=== PATIENT | male | born 1950 | race Caucasian/White ===

== ENCOUNTER 2019-08-07 16:16 | Inpatient (IN) | payer MEDICARE, OTHER, SELFPAY ==
[2019-08-07] VITALS (9 sets, daily range): BP systolic 136–158; BP diastolic 56–80; PULSE 58–73; RESP 13–16; TEMP 36.6–37.1; O2SAT 97–100; BMI 36.5
--- NOTE | ~2019-08-07 | XR_ITS ---
XR toe 1st RT min 2V DATE: 08/10/2019 11:44 INDICATION: Right toe swelling and pain. No known injury. TECHNIQUE: 4 views COMPARISON: None FINDINGS: No fracture, dislocation, periosteal reaction or bone destruction, radiopaque foreign body or subcutaneous emphysema is evident. IMPRESSION: No significant bony abnormality Reviewed, dictated and finalized at location A.
--- NOTE | ~2019-08-07 | XR_ITS ---
EXAMINATION: XR chest 2V EXAM DATE: 08/07/2019 17:29 INDICATION: Epigastric pain and vomiting. Symptoms for days. TECHNIQUE: Frontal and lateral projections of the chest obtained and reviewed. Comparison is made to prior examination from 10/15/2012. FINDINGS: The lungs are clear. There are no pleural effusions. The cardiomediastinal silhouette is within normal limits. There is no pneumothorax suspected. Mild thoracic scoliosis. Patient has diff use idiopathic skeletal hyperostosis (DISH). IMPRESSION: No acute cardiopulmonary findings. Reviewed, dictated and finalized at location A.
--- NOTE | ~2019-08-07 | US_ITS ---
US right upper quadrant DATE: 08/08/2019 07:48 INDICATION: Abnormal liver function tests, abnormal lipase. Possible acute cholecystitis. TECHNIQUE: Real-time imaging of liver, pancreas, gallbladder areas COMPARISON: 08/24/2019 CT abdomen pelvis FINDINGS: The pancreatic tail is obscured. The pancreas otherwise appears unremarkable. No hepatic sp srinath-occupying mass lesion is evident. Normal hepatopedal portal venous flow direction. The common bile duct measures 7.4 mm, which is above normal range. There is thickening of the gallbladder wall up to approximately 5 mm. Intraluminal filling defects ar e noted consistent with cholelithiasis, with associated shadowing. Negative sonographic Zhao's sign . IMPRESSION: Cholelithiasis, gallbladder wall thickening. Differential diagnosis includes acute and mo st likely chronic cholecystitis. Consider radionuclide hepatobiliary scan for further evaluation of p ossible acute cholecystitis as clinically appropriate Common bile duct measures 7.4 mm, greater than expected. Choledocholithiasis or other cause for bile duct obstruction should be considered. Consider MRCP. Reviewed, dictated and finalized at Location A. Reviewed, dictated and finalized at location A. IMPRESSION: Cholelithiasis, gallbladder wall thickening. Differential diagnosis includes acute and most likely chronic cholecystitis. Consider radionuclide he patobiliary scan for further evaluation of possible acute cholecystitis as clin ically appropriate Common bile duct measures 7.4 mm, greater than expected. Choledocholithiasis or other cause for bile duct obstruction should be considered. Consider MRCP.
--- NOTE | ~2019-08-07 | XR_ITS ---
EXAMINATION: XR cholangiogram surg 1st inj DATE: 08/08/2019 19:19 INDICATION: Intraoperative evaluation during laparoscopic cholecystectomy TECHNIQUE: Multiple fluoroscopic images of the right upper quadrant were obtained during intraoperati ve cholangiography. The amount of fluoroscopy time used during this procedure was 1.5 minutes. COMPARISON: None. FINDINGS: Cannulation and contrast opacification of the cystic duct demonstrates a persistent 2-3 mm filling defect in the mid cystic duct suspicious for nonobstructing gallstone. Contrast fills the nor mal appearing common bile duct which tapers smoothly distally with no intraluminal filling defects or stricture. Contrast extends into the duodenum and central intrahepatic biliary tree which also appea rs normal. IMPRESSION: 1. Persistent 2-3 mm likely gallstone in the mid cystic duct. No evident gallstones in the common gamaliel e duct. Reviewed, dictated and finalized at location A. IMPRESSION: 1. Persistent 2-3 mm likely gallstone in the mid cystic duct. No evident gallst ones in the common bile duct.
--- NOTE | ~2019-08-07 | CT_ITS ---
EXAMINATION: CT abdomen pelvis w con EXAM DATE: 08/07/2019 18:49 INDICATION: Epigastric pain and vomiting. TECHNIQUE: Spiral CT of the abdomen and pelvis was performed following intravenous injection of 100 m L Omnipaque 350. Axial, coronal and sagittal images were reviewed. The dose-length product (DLP) fo r this examination was 1498.93 mGy-cm. The exposure was tailored according to patient size (auto mA exposure control), and iterative reconstruction (ASIR) was used as additional dose reduction techniqu e. There is no prior study for comparison. FINDINGS: Gallbladder is mild to moderately distended with moderate amount of adjacent inflammation a nd some pericholecystic fluid. There is also fat stranding surrounding the common bile duct and idris hepatis. There is mild intrahepatic biliary duct dilation and also mild periportal edema. No calcifi ed cholelithiasis. Common bile duct is normal in caliber. Findings are consistent with acute cholecys titis, cholangitis. The liver, spleen, adrenal glands and pancreas are unremarkable. Portal and splenic veins are patent . Kidneys enhance symmetrically. There is no hydronephrosis. The prostate is unremarkable. The b ladder is unremarkable. There is no retroperitoneal or pelvic lymphadenopathy. There is mild scatt ered arteriosclerotic disease. Normal appendix or appendiceal stump if patient has had appendectomy. There is mild sigmoid colonic d iverticulosis. There is no adjacent inflammatory change to suggest diverticulitis. The stomach and s mall bowel are unremarkable. There is moderate amount of colonic stool. No free intraperitoneal ga s. The heart is normal in size. There are no pericardial or pleural effusions. There are bibasila r linear opacities, subsegmental atelectasis. There are no osteoblastic or osteolytic lesions identi fied. Small umbilical fat-containing hernia. IMPRESSION: Acute cholecystitis and cholangitis. Reviewed, dictated and finalized at location A.
--- NOTE | 2019-08-07 16:26 | ECG_ITS ---
Measurements Intervals [place] Rate: 72 P: 37 DC: 198 QRS: 49 QRSD: 123 T: 20 QT: 396 QTc: 435 Interpretive Statements SINUS RHYTHM NONSPECIFIC ST ELEVATION IN DIFFUSE LEADS- EARLY REPOLARIZATION OR PERICARDITIS ABNORMAL ECG Electronically Signed On 08-07-2019 20:04:34 CDT by Nitin Peña D.O.
[2019-08-07] MEDS: ASPIRIN 81 MG CHEWABLE TABLET 324 MG PO (16:45)
[2019-08-07 16:46] LABS: Basophils Absolute Auto 0.1 K/mm3 (0.0-0.1); Basophils Percent Auto 0.6 % (0.2-1.2); Eosinophils Absolute Auto 0.1 K/mm3 (0-0.3); Hematocrit 42.5 % (42.0-52.0); Hemoglobin 13.7 g/dL (14.0-18.0); Immature Granulocyte Absolute 0.03 K/mm3 (0.00-0.031); Immature Granulocyte Percent A 0.3 % (0-0.5); Lymphocytes Absolute Auto 0.91 K/mm3 (0.9-3.2); Lymphocytes Percent Auto 10.2 % (18.3-44.2); Mean Corpuscular HGB Conc 32.2 g/dl (32-36); Mean Corpuscular Hemoglobin 29.8 pg (26-34); Mean Corpuscular Volume 92.6 fl (80-100); Mean Platelet Volume 11.8 fl (7.4-10.4); Monocytes Absolute Auto 0.8 K/mm3 (0.1-0.6); Monocytes Percent Auto 8.6 % (2.6-8.5); Neutrophils Absolute Auto 7.1 K/mm3 (1.3-6.7); Neutrophils Percent Auto 79.3 % (45.5-73.1); Platelet Count Result 211 k/mm3 (150-375); Red Blood Count 4.59 M/mm3 (4.6-6.20); Red Cell Distribution Width 13.9 % (11.5-14.5); White Blood Count 8.9 K/mm3 (4.5-10.0)
[2019-08-07 17:00] LABS: Blood Urea Nitrogen 13 mg/dL (9-20); Calcium 8.6 mg/dL (8.4-10.2); Carbon Dioxide 28 mmol/L (22-30); Chloride 101 mmol/L (98-107); Estimated CRCL calculation 100 ml/min; Estimated Glomerular Filt Rate > 60; Glucose 116 mg/dL (75-110); Potassium 4.2 mmol/L (3.4-5.0); Sodium 136 mmol/L (137-145)
[2019-08-07 17:12] LABS: Troponin I < 0.012 ng/mL (0.000-0.034)
[2019-08-07 17:17] LABS: Prothrombin Time 13.1 Seconds (11.1-14.7)
[2019-08-07 17:18] LABS: Partial Thromboplastin Time 31.7 SECONDS (22.3-36.8)
--- NOTE | 2019-08-07 17:49 | ED.CHESTPAIN ---
HPI - Chest Pain General Chief Complaint: Chest Pain Stated Complaint: chest and back pain Time Seen by Provider: 08/07/19 17:48 History of Present Illness HPI narrative: Intermittent epigastric pain for the past 4 days. No clear inciting event or factors. Sharp in quality. Radiating to the back. Associated with nausea and one episode of vomiting. He has chronic SOB, which is somewhat worse when he is experieincing the pain. He has never had these symptoms in the past. No previous abdominal surgeries. No fever. Related Data Home Medications Medication Instructions Recorded Confirmed Men's 50 Plus Multivitamin 1 tablet PO DAILY 08/07/19 08/07/19 cholecalciferol (vitamin D3) 25 mcg PO DAILY 08/07/19 08/07/19 [Vitamin D3] loratadine [Claritin] 10 mg PO DAILY 08/07/19 08/07/19 turmeric 400 mg PO DAILY 08/07/19 08/07/19 Allergies Allergy/AdvReac Type Severity Reaction Status Date / Time No Known Allergies Allergy NONE Verified 08/07/19 16:27 Review of Systems Review of Systems: All systems reviewed & are unremarkable except as noted in HPI and below Constitutional: Constitutional: Denies fever(s) ENT: Denies sore throat Cardiovascular: Cardiovascular: Denies chest pain Respiratory: Respiratory: Reports dyspnea Gastrointestinal: Gastrointestinal: Reports abdominal pain, Reports constipation, Reports nausea and Reports vomiting Genitourinary: Genitourinary: Denies hematuria and Denies dysuria Neurologic: Denies numbness and Denies weakness [facility] Past Medical History Medical History (Updated 08/15/19 @ 15:47 by Ronny Patel MD) Hypothyroidism Melanoma Left lower leg Obesity Obstructive sleep apnea (adult) (pediatric) Intolerant to CPAP therapy Other hyperlipidemia Paranoid delusion Psoriasis Testicular hypofunction Type 2 diabetes mellitus without complications Borderline. No home medications. Surgical History Surgical History History of colonoscopy with polypectomy Most recent colonoscopy report within the system is from 2012 (Dr. Hatfield) and demonstrated diverticulitis however the patient has a history of colonoscopy with polypectomy previous to 2002. Family History Family History Mother Diabetes mellitus Father Acute myocardial infarction Social History Social History Social History: Primary care physician: Dr. Armand Franz Code status: Full code Smoking packs per day: 1 Smoking cigarettes per day: 20.0 Years smoked: 30 Smoking pack-years: 30.00 Smoking status: Former smoker Alcohol intake: current Drinks per week: 5 Substance use: never Additional living arrangements comments: He lives in [place] with his of 31 years. He has 4 step children. Seven grandchildren and 1 great grandchild. 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 Gender identity (if verbalized by the patient): Male Exam Const: General: no acute distress and alert Nutritional Appearance: obese Orientation/consciousness: patient oriented x3 HENMT: Head: normal to inspection Eyes: Pupils: Equal, round and reactive pupils present Chest: Chest palpation & inspection: normal inspection of the chest and no tenderness Resp: Effort & Inspection: normal respiratory effort Auscultation: clear to auscultation bilaterally Cardio: Rate: regular rate Rhythm: regular rhythm GI: Inspection: non-distended Other: soft, nontender Skin: General skin exam: No normal color Neuro: General: patient oriented x3 and No CN's II-XI intact bilaterally Speech: normal speech Extrem: General: normal to inspection Course Vital Signs Vital signs: Vital Signs Temperature 37.1 C 08/07/19 16:20 Pulse Rate 73 08/07/19 16:20 Respiratory Rate 15 08/07/19 16:20
[2019-08-07 18:30] LABS: Alanine Aminotransferase 444 U/L (4-50); Albumin Level 4.2 g/dL (3.5-5.1); Alkaline Phosphatase 246 U/L (38-126); Aspartate Amino Transferase 303 U/L (17-59); Bilirubin Direct 1.6 mg/dL (0-0.3); Bilirubin,Total 3.9 mg/dL (0.2-1.3); Lipase 601 U/L (23-300)
[2019-08-07 20:03] LABS: Troponin I < 0.012 ng/mL (0.000-0.034)
[2019-08-07] MEDS: LACTATED RINGERS 1,000 ML 125 ML IV CONT (21:00)
--- NOTE | 2019-08-07 21:07 | ADMGEN ---
This patient, Marvin Aguilar, was admitted to 3 [facility] Surg Room 301-01. Patient/family oriented to hospital policies and general routines including ID bracelet, bed and alarms, visiting hours, pain management, procedures, bathroom and other care routines, personal items, smoking policy, room service/diet, and visiting hours. Valuables list has been completed. Information on how to activate the Rapid Response Team has been discussed. Patient/Family are encouraged to report perceived risks to care and to ask questions if they do not understand what they are told or what they should do.
--- NOTE | 2019-08-07 21:19 | PM.IMHP ---
H&P: HPI History of Present Illness Chief complaint: Lower chest/upper abdominal pain Narrative: Date and time of patient contact: 08/07/2019 at 9:20 p.m. Marvin Aguilar is a 69 year old male with a past medical history of psoriasis and hypothyroidism who presented to the ER with chest pain and epigastric pain. The patient reports that the pain was intense and an 8/10 in intensity. The pain was made worse with eating. He is unsure if the pain is of was radiating to the back or if he was also just having a flare up of his back pain. He denies any relieving factors. His pain is currently a 0/10. His symptoms have been occurring for approximately 4 days. He has had some intermittent nausea. He had 2 episodes of vomiting today before arriving in the ER. He denies any hematochezia or hematemesis. Emesis was nonbilious. He reports chronic shortness of breath due to his prior history of smoking. He does not have a diagnosis of COPD as far as he knows. He denies any recent cough, congestion, fevers or chills. He did have an episode of diaphoresis that may have been associated with his nausea. He denies any changes in his bowel habits. He reports that he has psoriasis that is very itchy. The pruritus is worse on his legs and back. He request a moisturizer. Review of Systems Review of Systems: Narrative: 12 systems were reviewed with pertinent positives and negatives per HPI. Except as documented in the HPI, all other systems were reviewed and are negative. [facility] Past Medical History Medical History (Updated 08/07/19 @ 22:10 by Shahla Farr DO) Hypothyroidism Melanoma Left lower leg Obstructive sleep apnea (adult) (pediatric) Intolerant to CPAP therapy Other hyperlipidemia Paranoid delusion The patient is vague when answering questions regarding his psychiatric history and states that his problems ?come and go.? States he does not like to think about it. Psoriasis Testicular hypofunction Type 2 diabetes mellitus without complications Borderline Surgical History Surgical History (Updated 08/07/19 @ 21:25 by Shahla Farr DO) History of colonoscopy with polypectomy Most recent colonoscopy report within the system is from 2012 (Dr. Hatfield) and demonstrated diverticulitis however the patient has a history of colonoscopy with polypectomy previous Family History Family History (Updated 08/07/19 @ 20:57 by Shahla Farr DO) Mother Diabetes mellitus Father Acute myocardial infarction Social History Social History (Updated 08/07/19 @ 22:04 by Shahla Farr DO) Social History: Primary care physician: Dr. Armand Franz Code status: Full code Smoking packs per day: 1 Smoking cigarettes per day: 20.0 Years smoked: 30 Smoking pack-years: 30.00 Smoking status: Former smoker Alcohol intake: current Drinks per week: 5 Alcohol use details: A bottle wine a week. Substance use: never Living arrangements: with family Additional living arrangements comments: He lives in [place] with his of 31 years. He has 4 step children. Seven grandchildren and 1 great grandchild. 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 Gender identity (if verbalized by the patient): Male Meds Home Medications and Allergies Home Medications Medication Instructions Recorded Confirmed Type levothyroxine 75 mcg tablet 75 mcg PO DAILY #30 tablet 06/12/19 08/07/19 Rx cholecalciferol (vitamin D3) 25 mcg PO DAILY 08/07/19 08/07/19 History [Vitamin D3] loratadine [Claritin] 10 mg PO DAILY 08/07/19 08/07/19 History awxfuxxz-ypi-ujlgc-vit K-lycop 1 tablet PO DAILY 08/07/19 08/07/19 History [Men's 50 Plus Multivitamin] turmeric 400 mg PO DAILY 08/07/19 08/07/19 History Allergies Allergy/AdvReac Type Severity Reaction Status Date / Time No Known Allergies Allergy NONE Verified 08/07/19 16:27 V
[2019-08-07 23:32] LABS: Troponin I < 0.012 ng/mL (0.000-0.034)
[2019-08-08] VITALS (13 sets, daily range): BP systolic 103–138; BP diastolic 52–75; PULSE 56–78; RESP 13–18; TEMP 36–37.1; O2SAT 94–100
[2019-08-08] MEDS: LACTATED RINGERS 1,000 ML 125 ML IV CONT (06:32)
[2019-08-08] MEDS: LEVOTHYROXINE SODIUM INJ 100 MCG/5 ML VIAL 37.5 MCG IV PUSH (06:34)
[2019-08-08 07:14] LABS: Hematocrit 38.4 % (42.0-52.0); Hemoglobin 12.5 g/dL (14.0-18.0); Mean Corpuscular HGB Conc 32.6 g/dl (32-36); Mean Corpuscular Hemoglobin 29.6 pg (26-34); Mean Corpuscular Volume 90.8 fl (80-100); Mean Platelet Volume 11.6 fl (7.4-10.4); Platelet Count Result 196 k/mm3 (150-375); Red Blood Count 4.23 M/mm3 (4.6-6.20)
[2019-08-08 07:37] LABS: Alanine Aminotransferase 389 U/L (4-50); Albumin Level 3.5 g/dL (3.5-5.1); Alkaline Phosphatase 231 U/L (38-126); Aspartate Amino Transferase 242 U/L (17-59); Bilirubin,Total 5.6 mg/dL (0.2-1.3); Blood Urea Nitrogen 11 mg/dL (9-20); Calcium 8.4 mg/dL (8.4-10.2); Carbon Dioxide 31 mmol/L (22-30); Chloride 102 mmol/L (98-107); Estimated CRCL calculation 100 ml/min; Estimated Glomerular Filt Rate > 60; Glucose 113 mg/dL (75-110); Potassium 3.9 mmol/L (3.4-5.0); Sodium 136 mmol/L (137-145)
[2019-08-08 07:51] LABS: Lipase 6322 U/L (23-300)
--- NOTE | 2019-08-08 08:19 | WPDGICN ---
Assessment and Plan Assessment and plan (1) Acute cholecystitis: Code(s): K81.0 - Acute cholecystitis Status: Acute Assessment and Plan: Elevated LFTs and abnormal CT scan suggested with acute cholecystitis as well as cholangitis. Plan is for intravenous antibiotics. If symptoms and labs failed improved promptly MRCP or ERCP may be considered in a day or 2. Surgical follow-up ultimately for surgical resection anticipated. (2) Elevated LFTs: Code(s): R79.89 - Other specified abnormal findings of blood chemistry Status: Acute Assessment and Plan: Elevated LFTs likely related to cholecystitis. Liver function tests will be monitored closely and expect resolution with continued antibiotic therapy. No obvious gallstones on CAT scan ultrasound and/or MRCP may be considered in the next day or 2. (3) Hypothyroidism: Qualifiers: Hypothyroidism type: acquired Qualified Code(s): E03.9 - Hypothyroidism, unspecified Code(s): E03.9 - Hypothyroidism, unspecified Status: Acute (4) Psoriasis (a type of skin inflammation): Code(s): L40.9 - Psoriasis, unspecified Status: Acute (5) History of colon polyps: Code(s): Z86.010 - Personal history of colonic polyps Status: Acute Assessment and Plan: Patient has a history of colon polyps last exam was in 2012. Plan is for surveillance colonoscopy this can be performed electively as an outpatient. GI Consult Note Consult date/time: 08/08/19 08:19 HPI: Marvin Aguilar is a 69 year old male Seen in evaluation at the request of the emergency room. Patient in usual state of health over the last 4-5 days has had vague epigastric pain often on. Pain became rather intense yesterday prompting him to go to the emergency room. He denies a fever. Denies any jaundice. No known history of gallstones. In the emergency room he was found to have elevated liver function tests CT scan reveals inflammation about the gallbladder and common bile duct. Patient's past medical history is significant for hypothyroidism. He has been treated for psoriasis. He has a history of colon polyps resected in 2012. He may have had some psychiatric issues often on. Review of Systems Review of Systems: All systems reviewed & are unremarkable except as noted in HPI and below PMFSH Past Medical History Medical History Hypothyroidism Melanoma Left lower leg Obesity Obstructive sleep apnea (adult) (pediatric) Intolerant to CPAP therapy Other hyperlipidemia Paranoid delusion Psoriasis Testicular hypofunction Type 2 diabetes mellitus without complications Borderline. No home medications. Surgical History Surgical History History of colonoscopy with polypectomy Most recent colonoscopy report within the system is from 2012 (Dr. Hatfield) and demonstrated diverticulitis however the patient has a history of colonoscopy with polypectomy previous to 2002. Family History Family History Mother Diabetes mellitus Father Acute myocardial infarction Social History Social History Social History: Primary care physician: Dr. Armand Franz Code status: Full code Smoking packs per day: 1 Smoking cigarettes per day: 20.0 Years smoked: 30 Smoking pack-years: 30.00 Smoking status: Former smoker Alcohol intake: current Drinks per week: 5 Alcohol use details: A bottle wine a week. Substance use: never Living arrangements: with family Additional living arrangements comments: He lives in [place] with his of 31 years. He has 4 step children. Seven grandchildren and 1 great grandchild. 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
--- NOTE | 2019-08-08 08:26 | WPDANESEPPF ---
Anes - Initial Pre Proc Eval Procedure: Operation Date: 08/08/19 15:30 Proposed Procedures p Laparoscopic Cholecystectomy with Intra Operative Cholangiograms - Alo Dye MD Date/Time: 08/08/19 08:26 Pre Op Diagnosis: Lower chest/upper abdominal pain Patient Data Age: 69 Gender: M Height: 1.93 m Weight: 136.2 kg Last Vital Signs Temp 36.7 C 08/08/19 06:00 Pulse 75 08/08/19 06:00 Resp 16 08/08/19 06:00 BP 103/57 L 08/08/19 06:00 Pulse Ox 94 08/08/19 06:00 Allergies Allergy/AdvReac Type Severity Reaction Status Date / Time No Known Allergies Allergy NONE Verified 08/07/19 16:27 Home Medications Medication Instructions Recorded Confirmed Type levothyroxine 75 mcg tablet 75 mcg PO DAILY #30 tablet 06/12/19 08/07/19 Rx cholecalciferol (vitamin D3) 25 mcg PO DAILY 08/07/19 08/07/19 History [Vitamin D3] loratadine [Claritin] 10 mg PO DAILY 08/07/19 08/07/19 History oaneoixw-fho-anyhr-vit K-lycop 1 tablet PO DAILY 08/07/19 08/07/19 History [Men's 50 Plus Multivitamin] turmeric 400 mg PO DAILY 08/07/19 08/07/19 History Laboratory Tests 08/07/19 08/07/19 08/07/19 16:38 16:38 16:38 WBC 8.9 K/mm3 K/mm3 (4.5-10.0) RBC 4.59 M/mm3 L M/mm3 (4.6-6.20) Hgb 13.7 g/dL L g/dL (14.0-18.0) Hct 42.5 % % (42.0-52.0) MCV 92.6 fl fl (80-100) MCH 29.8 pg pg (26-34) MCHC 32.2 g/dl g/dl (32-36) RDW 13.9 % % (11.5-14.5) Plt Count 211 k/mm3 k/mm3 (150-375) MPV 11.8 fl H fl (7.4-10.4) Immature Gran % (Auto) 0.3 % % (0-0.5) Neut % (Auto) 79.3 % H % (45.5-73.1) Lymph % (Auto) 10.2 % L % (18.3-44.2) [place]erry % (Auto) 8.6 % H % (2.6-8.5) Eos % (Auto) 1.0 % % (0-4.4) Baso % (Auto) 0.6 % % (0.2-1.2) Lymph # (Auto) 0.91 K/mm3 K/mm3 (0.9-3.2) [place] # (Auto) 0.8 K/mm3 H K/mm3 (0.1-0.6) Eos # (Auto) 0.1 K/mm3 K/mm3 (0-0.3) Baso # (Auto) 0.1 K/mm3 K/mm3 (0.0-0.1) Abs Immat Gran (auto) 0.03 K/mm3 K/mm3 (0.00-0.031) Absolute Neuts (auto) 7.1 K/mm3 H K/mm3 (1.3-6.7) Absolute Nucleated RBC 0.0 K/mm3 K/mm3 (0.0-0.012) Nucleated RBC % 0.0 % % (0.0-0.2) PT 13.1 Seconds Seconds (11.1-14.7) INR 1.0 APTT 31.7 SECONDS SECONDS (22.3-36.8) Sodium 136 mmol/L L mmol/L (137-145) Potassium 4.2 mmol/L mmol/L (3.4-5.0) Chloride 101 mmol/L mmol/L (98-107) Carbon Dioxide 28 mmol/L mmol/L (22-30) BUN 13 mg/dL mg/dL (9-20) Creatinine 0.90 mg/dL mg/dL (0.7-1.3) Estim Creat Clear Calc 100 ml/min ml/min Estimated GFR > 60 (59 - ) Glucose 116 mg/dL H mg/dL (75-110) Calcium 8.6 mg/dL mg/dL (8.4-10.2) Total Bilirubin Direct Bilirubin AST ALT Alkaline Phosphatase Troponin I < 0.012 ng/mL ng/mL (0.000-0.034) Total Protein Albumin Lipase 08/07/19 08/07/1920 16:38 19:35 22:52 WBC RBC Hgb Hct MCV MCH MCHC RDW Plt Count MPV Immature Gran % (Auto) Neut % (Auto) Lymph % (Auto) [place] % (Auto) Eos % (Auto) Baso % (Auto) Lymph # (Auto) [place] # (Auto) Eos # (Auto) Baso # (Auto) Abs Immat Gran (auto) Absolute Neuts (auto) Absolute Nucleated RBC Nucleated RBC % PT INR APTT Sodium Potassium Chloride Carbon Dioxide BUN
--- NOTE | 2019-08-08 10:08 | PM.IMPN ---
Progress Note: A&P Assessment and Plan (1) Acute cholecystitis: Code(s): K81.0 - Acute cholecystitis Status: Acute Assessment and Plan: General surgery and Gastroenterology were consulted from the ER. Await further recommendations. Patient continues on IV Zosyn. Patient is NPO and on IV fluids. P.r.n. morphine and Zofran have been ordered. (2) Hypothyroidism: Qualifiers: Hypothyroidism type: acquired Qualified Code(s): E03.9 - Hypothyroidism, unspecified Code(s): E03.9 - Hypothyroidism, unspecified Status: Acute Assessment and Plan: The patient has been switched to IV levothyroxine since he is NPO. Resume PO once off NPO status (3) Psoriasis: Code(s): L40.9 - Psoriasis, unspecified Status: Acute Assessment and Plan: It appears patient takes turmeric Hold as this is NF and patient NPO (4) Obstructive sleep apnea (adult) (pediatric): Code(s): G47.33 - Obstructive sleep apnea (adult) (pediatric) Status: Acute Assessment and Plan: Patient is intolerant of CPAP and refuses to wear mask during stay after offered (5) Type 2 diabetes mellitus without complications: Qualifiers: Diabetes mellitus termite control servicer insulin use: without termite control servicer use Qualified Code(s): E11.9 - Type 2 diabetes mellitus without complications Code(s): E11.9 - Type 2 diabetes mellitus without complications Status: Acute Assessment and Plan: Patient states he is borderline. Serum BGL 113 this morning, appears to be fasting as he is NPO. Does not take medications Will do A1c tomorrow Diabetic diet once off NPO status Subjective Date/time seen: 08/08/19 10:08 Interval history: Patient is a 69 yo M with history of hypothyroidism, psoriasis, and DMII who is here for evaluation for suspected acute cholecystitis and cholangitis. Patient is doing reasonable today. His pain has improved. No n/v today. He believes he is borderline diabetic. He has some LE swelling, which is not uncommon for him; he wears compression stockings. No other complaints at the moment. Denies f/c/s, headaches, dizziness, lightheadedness, cp/palpitations, sob/cough, n/v/d/c, abd pain, dysuria, hematuria, cloudy urine Review of Systems Review of Systems: All systems reviewed & are unremarkable except as noted in HPI and below Exam Narrative: Exam Narrative: Patient lying supine in bed with head raised at time of visit. Const: General: cooperative, comfortable, no acute distress, well developed, alert, awake and Physically active Nutritional Appearance: obese Orientation/consciousness: patient oriented x3 HENMT: Head: normocephalic and atraumatic General nose exam: Normal nares present Face and sinus: face symmetric Mouth: Yes moist mucous membranes Eyes: General: appearance normal, both eyes and all related structures EOM: EOMs intact bilaterally Neck: Neck: trachea midline and supple Resp: Effort & Inspection: normal respiratory effort Auscultation: rhonchi right upper (cleared with cough) Cardio: Rate: regular rate Rhythm: regular rhythm Heart sounds: no murmurs GI: Inspection: non-distended and obesity GI Palp: No abdominal tenderness and Yes Soft to palpation Auscultation: Hypoactive bowel sounds present Skin: General skin exam: No normal color (slight jaundice) and rashes and/or lesions noted (multiple psoriatic lesions noted on extremities/trunk) Neuro: General: patient oriented x3, moves all extremities and no focal motor deficits Speech: normal speech Extrem: Right lower extremity: edema Left lower extremity: edema Other: NTTP b/l calves Psych: Mental Status: mental status grossly normal Affect: normal affect Objective Data Vital Signs Vital Sign
--- NOTE | 2019-08-08 11:02 | PM.CNGS ---
Assessment and Plan Assessment and plan (1) Acute cholecystitis: Code(s): K81.0 - Acute cholecystitis Status: Acute Assessment and Plan: Imaging reviewed and discussed with the patient in detail. He has evidence of acute cholecystitis with cholangitis. He has also had an increase in his lipase and total bilirubin today, which is concerning for choledocholithiasis and suggestive of biliary pancreatitis although the pancreas appeared normal on imaging. Ultrasound this morning showed cholelithiasis with gallbladder wall thickening and a dilated common bile duct to 7.4 mm. Gastroenterology has been consulted. I discussed the pathophysiology of gallbladder disease with the patient and our recommendations at this time. I also discussed the patient's case and plan of care with Dr. Dye. Although the patient's pain has improved, after looking at the imaging, it is very likely that his symptoms would return if he were advanced on a diet. We would recommend proceeding with a laparoscopic cholecystectomy, possible open, with intraoperative cholangiogram, by Dr. Dye later today for the acute cholecystitis. Description of the procedure, risks, benefits, indications, and expected outcomes were discussed with the patient in detail. All questions were answered. The patient is agreeable to proceed. Continue IV antibiotics, IV fluids, and analgesics at this time. Depending on the intraoperative cholangiogram, the patient may need ERCP postoperatively. Thank you for allowing me to see the patient consultation and we will continue to follow along with you. (2) Elevated LFTs: Code(s): R79.89 - Other specified abnormal findings of blood chemistry Status: Acute Assessment and Plan: Elevated LFTs could be related to acute cholecystitis, but also concerning for choledocholithiasis. Total bilirubin up to 5.6 today. Gastroenterology following and recommendations noted. Dr. Dye is planning to do an intraoperative cholangiogram today during surgery which will help evaluate for stones in the common bile duct. Will continue to trend labs. See plan above. (3) Psoriasis: Code(s): L40.9 - Psoriasis, unspecified Status: Acute Assessment and Plan: Not taking any immunosuppressive medications. (4) Obstructive sleep apnea (adult) (pediatric): Code(s): G47.33 - Obstructive sleep apnea (adult) (pediatric) Status: Acute History of Present Illness Consult details Consult date: 08/08/19 Reason for consult: other (Acute cholecystitis with cholangitis) Requesting physician: Ronny Patel MD Narrative: This is a 69-year-old male with a history of hypothyroidism, psoriasis, and obstructive sleep apnea, who presented to the emergency department with complaints of abdominal pain, nausea, and vomiting. The patient reports an onset of epigastric abdominal pain radiating to the lower chest that started about 4 days ago. He notes that the pain would worsen after eating. The pain was initially mild and he thought that he was constipated. Therefore, he took laxatives, but the pain did not improve after having a bowel movement. He also reports associated nausea with vomiting once at home. The epigastric abdominal pain was unrelenting and continued to worsen, therefore he presented to the emergency department for further evaluation. En route to the ED, the patient vomited a 2nd time. He reports feeling clammy at times but denies feeling feverish. CT scan of the abdomen and pelvis showed acute cholecystitis with cholangitis. Chest x-ray showed no acute cardiopulmonary findings. Initial labs in the ED revealed a white blood cell count of 8,900, total bilirubin 3.9, direct bilirubin 1.6, AST 303, ALT 444, alk-phos 246, normal troponins x3, and lipase of 601. The patient was admitted to the hospitalist service and started on IV antibiotics, IV fluids, and analgesics. Gastroenterology was consulted. Our service was con
--- NOTE | 2019-08-08 11:14 | PM.PNGS ---
Progress Note: A&P Assessment and Plan (1) Acute cholecystitis: Code(s): K81.0 - Acute cholecystitis Status: Acute Assessment and Plan: Plan to proceed with laparoscopic cholecystectomy with intraoperative cholangiogram today. I discussed the procedure the risks the benefits with the patient. The usual recovery and the time typically expected to stay in the hospital was discussed. All questions were answered. I also discussed that he may have common bile duct stones and that we would do the cholangiogram to evaluate that more thoroughly. He agrees to go ahead. (2) Elevated LFTs: Code(s): R79.89 - Other specified abnormal findings of blood chemistry Status: Acute (3) Type 2 diabetes mellitus without complications: Qualifiers: Diabetes mellitus shelter insulin use: without long goods drier use Qualified Code(s): E11.9 - Type 2 diabetes mellitus without complications Code(s): E11.9 - Type 2 diabetes mellitus without complications Status: Acute (4) Obstructive sleep apnea (adult) (pediatric): Code(s): G47.33 - Obstructive sleep apnea (adult) (pediatric) Status: Acute (5) Obesity: Code(s): E66.9 - Obesity, unspecified Status: Acute (6) Anemia: Qualifiers: Anemia type: unspecified type Qualified Code(s): D64.9 - Anemia, unspecified Code(s): D64.9 - Anemia, unspecified Status: Acute (7) Psoriasis: Code(s): L40.9 - Psoriasis, unspecified Status: Acute Subjective Subjective Date/Time Seen: 08/08/19 11:14 Patient reports: feels better and pain is less Interval history: Patient admitted with 4 day history of intermittent epigastric abdominal pain. It became worse and he came to the emergency room. He was noted to be tender in the right upper quadrant. CT scan showed evidence of acute cholecystitis. He also had elevated LFTs and an elevated lipase but no biliary ductal dilatation on CT scan. He is seen in consultation for cholecystitis. Review of Systems Review of Systems: All systems reviewed & are unremarkable except as noted in HPI and below (HPI) Exam GI: Inspection: normal to inspection, non-distended and obesity GI Palp: Yes Soft to palpation, Yes Tenderness to palpation present (GI), Yes Guarding due to palpation present (GI) and Yes No hepatosplenomegaly present Objective Data Vital Signs Vital Signs: Vital Signs - 24 hr 08/07/19 16:20 08/07/19 16:27 08/07/19 17:33 Temperature 37.1 C Pulse Rate 73 67 63 Respiratory Rate 15 13 Blood Pressure 152/77 H 147/80 H Pulse Oximetry 97 100 08/07/19 17:46 08/07/19 18:01 08/07/19 18:16 Temperature Pulse Rate 64 62 Respiratory Rate 15 14 Blood Pressure 146/69 H 154/67 H 155/68 H Pulse Oximetry 99 99 99 08/07/19 19:19 08/07/19 20:42 08/07/19 22:00 Temperature 36.6 C 36.9 C Pulse Rate 60 58 L 64 Respiratory Rate 14 16 16 Blood Pressure 144/67 H 158/73 H 136/56 L Pulse Oximetry 100 98 97 08/08/19 06:00 Temperature 36.7 C Pulse Rate 75 Respiratory Rate 16 Blood Pressure 103/57 L Pulse Oximetry 94 Intake/Output Intake/Output: Intake & Output 08/05/19 08/06/19 08/07/19 08/08/19 23:59 23:59 23:59 23:59 Intake Total 50 1050 Balance 50 1050 Meds/Results Medications: Active Medications Generic Name Dose Route Start Last Admin Trade Name Freq PRN Reason Stop Dose Admin Chlorhexidine Gluconate 1 applic 08/09/19 08:00 Hibiclens TOPICAL 08/09/19 08:01 ONCE ONE Fentanyl Citrate 25 mcg 08/08/19 08:05 Sublimaze IV PUSH Q2M PRN Pain Hydromorphone HCl 0.25 mg 08/08/19 08:05 Dilaudid Inj IV PUSH Q5M PRN Pain Piperacillin/Tazobactam/Dextrose 3.375 gm in 50 mls @ 100 mls/hr 08/08/19 01:00 08/08/19 06:34 Zosyn 3.375 Gm/D5w 50ml Pm IVPB 100 mls/hr Q6H JJ Administration Lactated Ringer's 1,000 mls @ 100 mls/hr 08/07/19 19:20 08/08/19 06:32 Lr - Lactated R
[2019-08-08] MEDS: LACTATED RINGERS 1,000 ML 30 ML IV CONT ×2 (14:20→19:00)
[2019-08-08] MEDS: BUPIVACAINE/EPINEPHRINE 0.5% 30 ML VIAL 15 ML INFILTRATE (16:30)
--- NOTE | 2019-08-08 18:28 | PC.NURSE ---
Pt was picked up by surgery at 1430.
--- NOTE | 2019-08-08 19:07 | PM.PROC ---
Procedure Note - Detailed Date of procedure: 08/08/19 Pre-op diagnosis: Lower chest/upper abdominal pain Acute cholecystitis, cholelithiasis, abnormal LFTs and lipase Post-op diagnosis: other (Gangrenous acute cholecystitis with cystic duct obstruction and hydrops) Procedure performed: Laparoscopic cholecystectomy with intraoperative cholangiogram Description of procedure: The patient was taken to surgery and induced into general anesthesia. The abdomen was prepped and draped. Trocars were placed in the usual fashion using 0.5% Marcaine with epinephrine and applied Medical optical trocars. Upon entering the abdomen with the initial trocar, it was obvious that this was going to be difficult surgery. Even though the patient has had no previous abdominal surgery, he had multiple omental adhesions to the anterior abdominal wall. 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 These all had to be taken down sharply to gain access to the right upper quadrant. This was able to be done with no significant bleeding or problems. At that point, we were able to see the gallbladder although it was encased with adhesions as well. The gallbladder was tensely distended and obviously gangrenous. I dissected these omental adhesions from the gallbladder. This was done with a combination of blunt and sharp dissection. The gallbladder was so distended and the wall so thickened that I was not able to grasp it. We used a laparoscopic aspirated ir and punctured the gallbladder. Clear bile came forth and the gallbladder did decompress. It was obvious, there were multiple stones present and the gallbladder had a very thickened wall. I placed an additional 5 mm port in the left mid abdomen to assist in retraction. This was clearly 1 of the most difficult gallbladder surgeries I have done for number of years. The lateral segment of the left lobe of the liver wrapped around obscuring the cholecysto hepatic triangle. The patient had hepatic steatosis making it difficult to retract the gallbladder adequately. The infundibulum and cholecystohepatic triangle were surrounded by very thickened edematous peritoneum that bled easily. Besides the difficulty with exposure and the severe acute inflammation associated with the gallbladder, there was a lot of bleeding in the cholecysto hepatic triangle due to the vascularity associated with this inflammation. We retracted the infundibulum of the gallbladder and began dissecting in the cholecysto hepatic triangle. We removed the initial peritoneum and fatty tissues but then on encountering a very dilated cystic duct the dissection got quite bloody. None of this dissection was done sharply. We did use some cautery to achieve hemostasis. Careful, difficult dissection was done. The cystic artery was dissected. The cystic duct was very distended and it was dissected as well. A small opening was made at the junction of the cystic duct and cystic artery simply by the retraction and the inflamed nature of the gallbladder. Initially some bile leak from here but then there was problems with stones coming out through this opening. Each of these stones was carefully retrieved as they were noted. We spent a long time trying to dissect the gallbladder off the liver at its lower 3rd so the critical view could be obtained. Slowly and gradually this was able to be achieved. The cystic artery was then securely clipped and divided. The cystic duct was dissected and then a small opening in the cystic duct was made with scissors. We proceeded with our cholangiogram. C-arm fluoroscopy was used. A cholangiogram catheter was placed in the cystic duct. We proceeded with 3 different runs for the cholangiogram. The cholangiogram showed there was a stone in the cystic duct but the common bile duct and intrahepatic ducts did not show stones. There was flow into the duodenum. I discussed this wi
--- NOTE | 2019-08-08 19:28 | SUR.PHASEI ---
1905; PT DROWSY. TRYING TO GET OUT OF BED. PT ORIENTED TO PACU. C/O PAIN TO ABDOMEN. REMOVING O2 MASK. CHANGED TO NASAL CANNULA
--- NOTE | 2019-08-08 20:00 | PC.NURSE ---
Returned from OR per [bed ]
[2019-08-08] MEDS: MORPHINE SULFATE 2 MG/ML INJ IV PUSH (21:59)
[2019-08-08] MEDS: FAMOTIDINE 20 MG/2 ML VIAL IV PUSH (21:59)
[2019-08-09] MEDS: LACTATED RINGERS 1,000 ML 100 ML IV CONT ×2 (00:07→08:13)
[2019-08-09 02:00] VITALS: BP 129/58; PULSE 59; RESP 18; TEMP 37.1; O2SAT 98
[2019-08-09 05:34] LABS: Hematocrit 38.3 % (42.0-52.0); Hemoglobin 12.4 g/dL (14.0-18.0); Mean Corpuscular HGB Conc 32.4 g/dl (32-36); Mean Corpuscular Hemoglobin 29.7 pg (26-34); Mean Corpuscular Volume 91.6 fl (80-100); Mean Platelet Volume 11.9 fl (7.4-10.4); Platelet Count Result 207 k/mm3 (150-375); Red Blood Count 4.18 M/mm3 (4.6-6.20); Red Cell Distribution Width 14.1 % (11.5-14.5); White Blood Count 11.8 K/mm3 (4.5-10.0)
[2019-08-09 05:42] LABS: Hemoglobin A1C 5.8 % (<5.7)
[2019-08-09 05:50] LABS: Alanine Aminotransferase 504 U/L (4-50); Albumin Level 3.5 g/dL (3.5-5.1); Alkaline Phosphatase 229 U/L (38-126); Aspartate Amino Transferase 369 U/L (17-59); Blood Urea Nitrogen 17 mg/dL (9-20); Calcium 8.6 mg/dL (8.4-10.2); Carbon Dioxide 32 mmol/L (22-30); Chloride 101 mmol/L (98-107); Estimated CRCL calculation 100 ml/min; Estimated Glomerular Filt Rate > 60; Glucose 96 mg/dL (75-110); Lipase 428 U/L (23-300); Magnesium 1.8 mg/dL (1.6-2.3); Potassium 4.5 mmol/L (3.4-5.0); Sodium 137 mmol/L (137-145)
[2019-08-09 06:00] VITALS: BP 121/54; PULSE 65; RESP 18; TEMP 37.2; O2SAT 95
[2019-08-09 08:04] VITALS: O2SAT 93
[2019-08-09] MEDS: LEVOTHYROXINE SODIUM 75 MCG TABLET PO (08:14)
[2019-08-09] MEDS: LORATADINE 10 MG TABLET PO (08:14)
[2019-08-09] MEDS: FAMOTIDINE 20 MG/2 ML VIAL IV PUSH (08:15)
[2019-08-09] MEDS: ENOXAPARIN 40 MG/0.4 ML SYRINGE SUB-Q (08:15)
[2019-08-09 10:05] VITALS: BP 125/52; PULSE 66; RESP 18; TEMP 36.8; O2SAT 93
--- NOTE | 2019-08-09 12:21 | PM.IMPN ---
Progress Note: A&P Assessment and Plan (1) Acute gangrenous cholecystitis: Code(s): K81.0 - Acute cholecystitis Status: Acute Assessment and Plan: POD#[address] Dye; following and appreciate recommendations. Dr. Nelson also following and appreciate recommendations. Patient clinically doing well today. Pain reasonable, tolerating PO, passing flatus. Patient continues on IV Zosyn. CLD; will defer advancement to General Sugery P.r.n. morphine and Zofran have been ordered. Monitor closely (2) Hypothyroidism: Qualifiers: Hypothyroidism type: acquired Qualified Code(s): E03.9 - Hypothyroidism, unspecified Code(s): E03.9 - Hypothyroidism, unspecified Status: Acute Assessment and Plan: The patient has been switched to home PO levothyroxine since he is tolerating CLD (3) Psoriasis: Code(s): L40.9 - Psoriasis, unspecified Status: Acute Assessment and Plan: It appears patient takes turmeric. Discussed in length about discussing with PCP about other medications. Patient states he did not want to be immunosuppressed so deferred treatment with any immunosuppressants. He uses petroleum jelly and Aveeno cream at home for topical relief Hold turmeric as this is NF Will order Eucerin cream (4) Obstructive sleep apnea (adult) (pediatric): Code(s): G47.33 - Obstructive sleep apnea (adult) (pediatric) Status: Acute Assessment and Plan: Patient is intolerant of CPAP and refuses to wear mask during stay after being offered (5) Type 2 diabetes mellitus without complications: Qualifiers: Diabetes mellitus intermediate insulin use: without medical terminologist use Qualified Code(s): E11.9 - Type 2 diabetes mellitus without complications Code(s): E11.9 - Type 2 diabetes mellitus without complications Status: Acute Assessment and Plan: Patient states he is borderline. A1c 5.8. Serum BGL 96 this morning. Does not take medications Diabetic diet once diet advanced Monitor daily serum BGL on BMP Subjective Date/time seen: 08/09/19 12:21 Interval history: Patient is a 69 yo M with history of hypothyroidism, psoriasis, and DMII who is here for gangrenous acute cholecystitis with cystic duct obstruction and hydrops; POD#1 lap cholecystectomy with IOC per Dr. Dye. Patient is doing okay today. Pain is reasonable today. He is tolerating his CLD thus far. No BMs; passing flatus. No n/v today. He has some LE swelling, which is not uncommon for him; he wears compression stockings. No other complaints at the moment. Denies f/c/s, headaches, dizziness, lightheadedness, cp/palpitations, sob/cough, n/v, dysuria, hematuria, cloudy urine Review of Systems Review of Systems: All systems reviewed & are unremarkable except as noted in HPI and below Exam Narrative: Exam Narrative: Patient lying in semi-mosley's position in bed at time of visit Const: General: cooperative, comfortable, no acute distress, well developed, alert, awake and Physically active Nutritional Appearance: obese Orientation/consciousness: patient oriented x3 HENMT: Head: normocephalic and atraumatic General nose exam: Normal nares present Face and sinus: face symmetric Mouth: Yes moist mucous membranes Eyes: General: appearance normal, both eyes and all related structures EOM: EOMs intact bilaterally Neck: Neck: trachea midline and supple Resp: Effort & Inspection: normal respiratory effort Auscultation: clear to auscultation bilaterally Cardio: Rate: regular rate Rhythm: regular rhythm Heart sounds: no murmurs GI: Inspection: non-distended, obesity and other (Surgical incisions c/d/i without evidence of infection) GI Palp: No abdominal tenderness and Yes Soft
--- NOTE | 2019-08-09 12:24 | WPDGIPROGNO ---
Progress Note: A&P Additional Plan Patient somewhat achy this morning after surgery Yesterday. Physical exam reveals patient to be alert. Abdomen is soft. Incisional tenderness noted. Impression 1. Status post cholecystectomy. Surgical findings noted. Intraoperative cholangiogram suggests no common duct stones. Plan for recovery as per surgery continue broad-spectrum antibiotics because of significant cholecystitis and cholangitis preoperatively. Subjective Date/time seen: 08/09/19 12:24 Objective Data Vital Signs Vital Signs: Vital Signs - 24 hr 08/08/19 13:41 08/08/19 14:20 08/08/19 16:45 Temperature 36.7 C 37.1 C 36.3 C L Pulse Rate 61 56 L 64 Respiratory Rate 16 16 14 Blood Pressure 113/61 128/62 115/54 L Pulse Oximetry 99 100 97 08/08/19 19:00 08/08/19 19:15 08/08/19 19:30 Temperature 36.0 C L 36.1 C L 36.3 C L Pulse Rate 75 78 64 Respiratory Rate 13 18 14 Blood Pressure 134/58 L 138/75 122/52 L Pulse Oximetry 97 98 98 08/08/19 19:45 08/08/19 20:00 08/08/19 20:20 Temperature 36.7 C Pulse Rate 62 68 61 Respiratory Rate 14 14 18 Blood Pressure 115/55 L 124/64 129/64 Pulse Oximetry 98 98 97 08/08/19 20:35 08/08/19 21:05 08/08/19 22:00 Temperature 36.7 C 36.7 C 37.0 C Pulse Rate 62 65 65 Respiratory Rate 18 18 18 Blood Pressure 126/60 120/62 120/56 L Pulse Oximetry 96 98 99 08/09/19 02:00 08/09/19 06:00 08/09/19 08:04 Temperature 37.1 C 37.2 C Pulse Rate 59 L 65 Respiratory Rate 18 18 Blood Pressure 129/58 L 121/54 L Pulse Oximetry 98 95 93 Intake/Output Intake/Output: Intake & Output 08/06/19 08/07/19 08/08/19 08/09/19 23:59 23:59 23:59 23:59 Intake Total 50 2400 1100 Output Total 10 650 Balance 50 7600 450 Meds/Results Medications: Active Medications Generic Name Dose Route Start Last Admin Trade Name Freq PRN Reason Stop Dose Admin Acetaminophen 500 mg 08/08/19 20:14 Tylenol Tablet PO Q6H PRN Mild Pain (1-3) or Fever Hydrocodone Bitart/Acetaminophen 1 tab 08/08/19 20:14 08/09/19 08:13 [place] 5-325 Mg PO 1 tab Q4H PRN Administration Pain Rated 4-6 Hydrocodone Bitart/Acetaminophen 1 tab 08/08/19 20:14 [place] 10-325 Mg PO Q4H PRN Pain Rated 7-10 Enoxaparin Sodium 40 mg 08/09/19 09:00 08/09/19 08:15 Lovenox SUB-Q 40 mg DAILY JJ Administration Famotidine 20 mg 08/08/19 21:00 08/09/19 08:15 Pepcid Iv IV PUSH 20 mg Q12HR JJ Administration Piperacillin/Tazobactam/Dextrose 3.375 gm in 50 mls @ 100 mls/hr 08/08/19 01:00 08/09/19 08:23 Zosyn 3.375 Gm/D5w 50ml Pm IVPB Infused Q6H JJ Infusion Lactated Ringer's 1,000 mls @ 100 mls/hr 08/08/19 20:14 08/09/19 08:13 Lr - Lactated Ringers Iv IV CONT 100 mls/hr .Q10H JJ Administration Levothyroxine Sodium 75 mcg 08/09/19 07:30 08/09/19 08:14 Synthroid PO 75 mcg DAILY@0630 JJ Administration Loratadine 10 mg 08/09/19 09:00 08/09/19 08:14 Claritin PO 10 mg QAM JJ Administration Morphine Sulfate 2 mg 08/08/19 20:14 08/08/19 21:59 Morphine Sulfate Inj IV PUSH 2 mg Q2H PRN Administration Pain Rated 4-6 Morphine Sulfate 4 mg 08/08/19 20:14 Morphine Sulfate Inj IV PUSH Q2H PRN Pain Rated 7-10 Naloxone HCl 0.1 mg 08/08/19 20:14 Narcan IV PUSH Q2M PRN Opiate Reversal Ondansetron HCl 4 mg 08/08/19 20:14 Zofran Inj IV PUSH Q4H PRN Nausea And Vomiting Radiology Results: ITS Impressions Chest X-Ray 08/07/19 17:32 IMPRESSION: No acute cardiopulmonary findings. Abdomen/Pelvis CT 08/07/19 18:50 IMPRESSION: Acute cholecystitis and cholangitis. Upper Quadrant Ultrasound 08/08/19 07:50 IMPRESSION: Cholelithiasis, gallbladder wall thickening. Differential diagnosis includes acute and most likely chronic cholecystitis. Consider radionuclide hepatobiliary scan for further evaluation of possible acute cholecysti
[2019-08-09 14:00] VITALS: BP 116/57; PULSE 65; RESP 16; TEMP 36.7; O2SAT 95
--- NOTE | 2019-08-09 15:28 | PM.PNGS ---
Progress Note: A&P Assessment and Plan (1) Acute gangrenous cholecystitis: Code(s): K81.0 - Acute cholecystitis Status: Acute Assessment and Plan: Doing well after difficult laparoscopic cholecystectomy yesterday. He is very comfortable and GRISELDA drain shows only serosanguineous fluid. Will advance to low-fat diet. Increase ambulation. Possibly home on oral antibiotics Monday or Monday. Continue IV antibiotics for now. (2) Elevated LFTs: Code(s): R79.89 - Other specified abnormal findings of blood chemistry Status: Acute Assessment and Plan: LFTs more elevated today but bilirubin is less. Cholangiogram showed no common bile duct stones. (3) Psoriasis: Code(s): L40.9 - Psoriasis, unspecified Status: Chronic (4) Obstructive sleep apnea (adult) (pediatric): Code(s): G47.33 - Obstructive sleep apnea (adult) (pediatric) Status: Chronic (5) Type 2 diabetes mellitus without complications: Qualifiers: Diabetes mellitus spragger insulin use: without fdc use Qualified Code(s): E11.9 - Type 2 diabetes mellitus without complications Code(s): E11.9 - Type 2 diabetes mellitus without complications Status: Chronic Subjective Subjective Date/Time Seen: 08/09/19 15:28 Post Op day: 1 Patient reports: no new complaints, feels better, pain is less, tolerating liquids well, voiding w/o difficulty and afebrile Review of Systems Review of Systems: All systems reviewed & are unremarkable except as noted in HPI and below Cardiovascular: Cardiovascular: Denies chest pain and Denies dyspnea Respiratory: Respiratory: Denies cough and Denies dyspnea Gastrointestinal: Gastrointestinal: Reports as per HPI Neurologic: Denies confusion and Denies headache(s) Exam Const: General: comfortable and no acute distress; No confusion Orientation/consciousness: patient oriented x3 and No confusion GI: Inspection: non-distended and incision (Healing well, serosanguineous fluid in GRISELDA drain) GI Palp: Yes Soft to palpation, Yes Tenderness to palpation present (GI), No Guarding due to palpation present (GI) and No Rebound tenderness present Auscultation: normal bowel sounds Neuro: General: patient oriented x3, no focal motor deficits and No confusion Extrem: General: no calf tenderness and no edema Psych: Affect: normal affect Insight: Good insight present (Psych) Judgement: Good judgement present (Psych) Objective Data Vital Signs Vital Signs: Vital Signs - 24 hr 08/08/19 16:45 08/08/19 19:00 08/08/19 19:15 Temperature 36.3 C L 36.0 C L 36.1 C L Pulse Rate 64 75 78 Respiratory Rate 14 13 18 Blood Pressure 115/54 L 134/58 L 138/75 Pulse Oximetry 97 97 98 08/08/19 19:30 08/08/19 19:45 08/08/19 20:00 Temperature 36.3 C L Pulse Rate 64 62 68 Respiratory Rate 14 14 14 Blood Pressure 122/52 L 115/55 L 124/64 Pulse Oximetry 98 98 98 08/08/19 20:20 08/08/19 20:35 08/08/19 21:05 Temperature 36.7 C 36.7 C 36.7 C Pulse Rate 61 62 65 Respiratory Rate 18 18 18 Blood Pressure 129/64 126/60 120/62 Pulse Oximetry 97 96 98 08/08/19 22:00 08/09/19 02:00 08/09/19 06:00 Temperature 37.0 C 37.1 C 37.2 C Pulse Rate 65 59 L 65 Respiratory Rate 18 18 18 Blood Pressure 120/56 L 129/58 L 121/54 L Pulse Oximetry 99 98 95 08/09/19 08:04 08/09/19 10:05 Temperature 36.8 C Pulse Rate 66 Respiratory Rate 18 Blood Pressure 125/52 L Pulse Oximetry 93 93 Intake/Output Intake/Output: Intake & Output 08/06/19 08/07/19 08/08/19 08/09/19 23:59 23:59 23:59 23:59 Intake Total 50 2400 1580 Output Total 10 650 Balance 50 9700 930 Meds/Results Medications: Active Medications Generic Name Dose Route Start Last Admin Trade Name Freq PRN Reason Stop Dose Admin Acetaminophen 500 mg 08/08/19 20:14 Tylenol Tablet PO Q6H PRN Mild Pain (1-3) or Fever Hydrocodone Bitart/Acetaminophen 1 tab 08/08/19 20:14
[2019-08-09] MEDS: EUCERIN CREAM 120 GM JAR 1 APPLIC TOPICAL (15:57)
[2019-08-09] MEDS: FAMOTIDINE 20 MG TABLET PO (21:04)
[2019-08-09 22:00] VITALS: BP 147/53; PULSE 66; RESP 16; TEMP 36.7; O2SAT 95
[2019-08-10 05:58] VITALS: BP 115/68; PULSE 72; RESP 18; TEMP 36.9; O2SAT 95
[2019-08-10] MEDS: LEVOTHYROXINE SODIUM 75 MCG TABLET PO (06:13)
[2019-08-10 06:49] LABS: Hematocrit 37.2 % (42.0-52.0); Mean Corpuscular HGB Conc 32.3 g/dl (32-36); Mean Corpuscular Hemoglobin 29.6 pg (26-34); Mean Corpuscular Volume 91.9 fl (80-100); Mean Platelet Volume 12.4 fl (7.4-10.4); Platelet Count Result 212 k/mm3 (150-375); Red Blood Count 4.05 M/mm3 (4.6-6.20); Red Cell Distribution Width 14.1 % (11.5-14.5); White Blood Count 9.1 K/mm3 (4.5-10.0)
[2019-08-10 07:01] LABS: Alanine Aminotransferase 473 U/L (4-50); Albumin Level 3.4 g/dL (3.5-5.1); Alkaline Phosphatase 179 U/L (38-126); Aspartate Amino Transferase 276 U/L (17-59); Bilirubin,Total 1.4 mg/dL (0.2-1.3); Blood Urea Nitrogen 14 mg/dL (9-20); Calcium 8.3 mg/dL (8.4-10.2); Carbon Dioxide 32 mmol/L (22-30); Chloride 100 mmol/L (98-107); Estimated CRCL calculation 126 ml/min; Estimated Glomerular Filt Rate > 60; Glucose 100 mg/dL (75-110); Magnesium 1.8 mg/dL (1.6-2.3); Sodium 135 mmol/L (137-145)
[2019-08-10] MEDS: EUCERIN CREAM 120 GM JAR 1 APPLIC TOPICAL (08:26)
[2019-08-10] MEDS: ENOXAPARIN 40 MG/0.4 ML SYRINGE SUB-Q (08:27)
[2019-08-10] MEDS: FAMOTIDINE 20 MG TABLET PO ×2 (08:27→21:18)
[2019-08-10] MEDS: LORATADINE 10 MG TABLET PO (08:28)
[2019-08-10 08:36] VITALS: O2SAT 95
--- NOTE | 2019-08-10 11:06 | PM.IMPN ---
Progress Note: A&P Assessment and Plan (1) Acute gangrenous cholecystitis: Code(s): K81.0 - Acute cholecystitis Status: Acute Assessment and Plan: POD#[address] Dye; following and appreciate recommendations. Dr. Nelson also following and appreciate recommendations. Patient clinically doing well today. LFTs and bili have both improved overnight. Pain reasonable, tolerating PO, passing flatus; no BMs as of yet Patient continues on IV Zosyn; will likely switch to PO antibiotics per Surgery recs Low fat diet per General Surgery P.r.n. morphine IV or [place] PO and Zofran have been ordered. Monitor closely (2) Hypothyroidism: Qualifiers: Hypothyroidism type: acquired Qualified Code(s): E03.9 - Hypothyroidism, unspecified Code(s): E03.9 - Hypothyroidism, unspecified Status: Acute Assessment and Plan: Continue home PO levothyroxine (3) Psoriasis: Code(s): L40.9 - Psoriasis, unspecified Status: Chronic Assessment and Plan: It appears patient takes turmeric. During stay, discussed in length about discussing with PCP about other medications. Patient states he did not want to be immunosuppressed so deferred treatment with any immunosuppressants. He uses petroleum jelly and Aveeno cream at home for topical relief Hold turmeric as this is NF Will order Eucerin cream F/u with PCP for further care (4) Obstructive sleep apnea (adult) (pediatric): Code(s): G47.33 - Obstructive sleep apnea (adult) (pediatric) Status: Chronic Assessment and Plan: Patient is intolerant of CPAP and refuses to wear mask during stay after being offered (5) Type 2 diabetes mellitus without complications: Qualifiers: Diabetes mellitus group home insulin use: without supervisor intermediates use Qualified Code(s): E11.9 - Type 2 diabetes mellitus without complications Code(s): E11.9 - Type 2 diabetes mellitus without complications Status: Chronic Assessment and Plan: Patient states he is borderline. A1c 5.8. Serum BGL 100 this morning. Does not take medications Diabetic diet once diet advanced Monitor daily serum BGL on BMP (6) Edema of toe: Code(s): R60.0 - Localized edema Status: Acute Assessment and Plan: Patient noticed right 1st toe swelling 1-2 weeks ago after having a prick . No trauma to area. No history of gout. Exam revealed edematous right 1st toe, but no signs of acute infection; gout unlikely. Unclear etiology. B/L LE are edematous which is chronic Will get xray of right 1st toe Monitor F/u with PCP Subjective Date/time seen: 08/10/19 11:06 Interval history: Patient is a 69 yo M with history of hypothyroidism, psoriasis, and DMII who is here for gangrenous acute cholecystitis with cystic duct obstruction and hydrops; POD#2 lap cholecystectomy with IOC per Dr. Dye. Patient is doing okay today. Pain is reasonable today although notes an isolated sharp epigastric pain that resolved quickly. He is tolerating his diet thus far. No BMs; passing flatus. No n/v today. He has some LE swelling, which is not uncommon for him; he wears compression stockings. He notes right 1st toe swelling where he experience a possible prick on the top of his 1st toe, then swelling since then; slightly painful. No history of gout per patient. No other complaints at the moment. Denies f/c/s, headaches, dizziness, lightheadedness, cp/palpitations, sob/cough, n/v, dysuria, hematuria, cloudy urine Review of Systems Review of Systems: All systems reviewed & are unremarkable except as noted in HPI and below Exam Narrative: Exam Narrative: Patient lying in semi-mosley's position in bed at time of
--- NOTE | 2019-08-10 13:14 | PM.PNGS ---
Progress Note: A&P Assessment and Plan (1) Acute gangrenous cholecystitis: Code(s): K81.0 - Acute cholecystitis Status: Acute Assessment and Plan: Continue IV antibiotics. Increase activity. Will likely be able to discharge tomorrow. Subjective Subjective Date/Time Seen: 08/10/19 13:14 Post Op day: 2 Patient reports: feels better Interval history: Tolerating a low-fat diet. Pain well controlled. No fevers. Review of Systems Review of Systems: All systems reviewed & are unremarkable except as noted in HPI and below Exam GI: Inspection: other (GRISELDA serosanguineous) GI Palp: Yes Soft to palpation, Yes Tenderness to palpation present (GI) (Incisional) and Yes Other GI palpation findings present (Incisions clean, dry, intact) Objective Data Vital Signs Vital Signs: Vital Signs - 24 hr 08/09/19 14:00 08/09/19 22:00 08/10/19 05:58 Temperature 36.7 C 36.7 C 36.9 C Pulse Rate 65 66 72 Respiratory Rate 16 16 18 Blood Pressure 116/57 L 147/53 H 115/68 Pulse Oximetry 95 95 95 08/10/19 08:36 Temperature Pulse Rate Respiratory Rate Blood Pressure Pulse Oximetry 95 Intake/Output Intake/Output: Intake & Output 08/07/19 08/08/19 08/09/19 08/10/19 23:59 23:59 23:59 23:59 Intake Total 50 2400 2230 690 Output Total 10 1500 1315 Balance 50 2390 730 -625 Meds/Results Medications: Active Medications Generic Name Dose Route Start Last Admin Trade Name Freq PRN Reason Stop Dose Admin Acetaminophen 500 mg 08/08/19 20:14 Tylenol Tablet PO Q6H PRN Mild Pain (1-3) or Fever Hydrocodone Bitart/Acetaminophen 1 tab 08/08/19 20:14 08/10/19 06:17 [place] 5-325 Mg PO 1 tab Q4H PRN Administration Pain Rated 4-6 Hydrocodone Bitart/Acetaminophen 1 tab 08/08/19 20:14 [place] 10-325 Mg PO Q4H PRN Pain Rated 7-10 Enoxaparin Sodium 40 mg 08/09/19 09:00 08/10/19 08:27 Lovenox SUB-Q 40 mg DAILY JJ Administration Famotidine 20 mg 08/09/19 21:00 08/10/19 08:27 Pepcid PO 20 mg Q12HR JJ Administration Piperacillin/Tazobactam/Dextrose 3.375 gm in 50 mls @ 100 mls/hr 08/08/19 01:00 08/10/19 06:13 Zosyn 3.375 Gm/D5w 50ml Pm IVPB 100 mls/hr Q6H JJ Administration Levothyroxine Sodium 75 mcg 08/09/19 07:30 08/10/19 06:13 Synthroid PO 75 mcg DAILY@0630 JJ Administration Loratadine 10 mg 08/09/19 09:00 08/10/19 08:28 Claritin PO 10 mg QAM JJ Administration Morphine Sulfate 1 mg 08/09/19 15:27 Morphine Sulfate Inj IV PUSH Q2H PRN Pain Rated 4-6 Morphine Sulfate 2 mg 08/09/19 15:27 Morphine Sulfate Inj IV PUSH Q2H PRN Pain Rated 7-10 Multi-Ingred Cream/Lotion/Oil/Oint 1 applic 08/09/19 12:25 08/10/19 08:26 Minerin Creme TOPICAL 1 applic QAM JJ Administration Naloxone HCl 0.1 mg 08/08/19 20:14 Narcan IV PUSH Q2M PRN Opiate Reversal Ondansetron HCl 4 mg 08/08/19 20:14 Zofran Inj IV PUSH Q4H PRN Nausea And Vomiting Radiology Results: ITS Impressions Chest X-Ray 08/07/19 17:32 IMPRESSION: No acute cardiopulmonary findings. Abdomen/Pelvis CT 08/07/19 18:50 IMPRESSION: Acute cholecystitis and cholangitis. Upper Quadrant Ultrasound 08/08/19 07:50 IMPRESSION: Cholelithiasis, gallbladder wall thickening. Differential diagnosis includes acute and most likely chronic cholecystitis. Consider radionuclide hepatobiliary scan for further evaluation of possible acute cholecystitis as clinically appropriate Common bile duct measures 7.4 mm, greater than expected. Choledocholithiasis or other cause for bile duct obstruction should be considered. Consider MRCP. Cholangiogram,Operative 08/08/19 19:40 IMPRESSION: 1. Persistent 2-3 mm likely gallstone in the mid cystic duct. No evident gallstones in the common bile duct. Toe X-Ray 08/10/19 12:35 IMPRESSION: No significant bony abnormality
[2019-08-10 14:00] VITALS: BP 125/58; PULSE 83; RESP 18; TEMP 36.7; O2SAT 96
--- NOTE | 2019-08-10 14:23 | WPDGIPROGNO ---
Progress Note: A&P Additional Plan Patient improving status post cholecystectomy. Now tolerating p.o. intake. No BM yet Physical exam reveals patient be alert. Abdomen is soft with incisional tenderness. Labs reveal decrease in LFTs. Impression acute gangrenous cholecystitis. Now status post cholecystectomy. Plan is to continue antibiotics. [place] diet as per surgery. Hopefully discharge over the next several days. Subjective Date/time seen: 08/10/19 14:23 Objective Data Vital Signs Vital Signs: Vital Signs - 24 hr 08/09/19 22:00 08/10/19 05:58 08/10/19 08:36 Temperature 36.7 C 36.9 C Pulse Rate 66 72 Respiratory Rate 16 18 Blood Pressure 147/53 H 115/68 Pulse Oximetry 95 95 95 08/10/19 14:00 Temperature 36.7 C Pulse Rate 83 Respiratory Rate 18 Blood Pressure 125/58 L Pulse Oximetry 96 Intake/Output Intake/Output: Intake & Output 08/07/19 08/08/19 08/09/19 08/10/19 23:59 23:59 23:59 23:59 Intake Total 50 2400 2230 1050 Output Total 10 1500 1315 Balance 50 2390 730 -265 Meds/Results Medications: Active Medications Generic Name Dose Route Start Last Admin Trade Name Freq PRN Reason Stop Dose Admin Acetaminophen 500 mg 08/08/19 20:14 Tylenol Tablet PO Q6H PRN Mild Pain (1-3) or Fever Hydrocodone Bitart/Acetaminophen 1 tab 08/08/19 20:14 08/10/19 06:17 [place] 5-325 Mg PO 1 tab Q4H PRN Administration Pain Rated 4-6 Hydrocodone Bitart/Acetaminophen 1 tab 08/08/19 20:14 [place] 10-325 Mg PO Q4H PRN Pain Rated 7-10 Enoxaparin Sodium 40 mg 08/09/19 09:00 08/10/19 08:27 Lovenox SUB-Q 40 mg DAILY JJ Administration Famotidine 20 mg 08/09/19 21:00 08/10/19 08:27 Pepcid PO 20 mg Q12HR JJ Administration Piperacillin/Tazobactam/Dextrose 3.375 gm in 50 mls @ 100 mls/hr 08/08/19 01:00 08/10/19 06:13 Zosyn 3.375 Gm/D5w 50ml Pm IVPB 100 mls/hr Q6H JJ Administration Levothyroxine Sodium 75 mcg 08/09/19 07:30 08/10/19 06:13 Synthroid PO 75 mcg DAILY@0630 JJ Administration Loratadine 10 mg 08/09/19 09:00 08/10/19 08:28 Claritin PO 10 mg QAM JJ Administration Morphine Sulfate 1 mg 08/09/19 15:27 Morphine Sulfate Inj IV PUSH Q2H PRN Pain Rated 4-6 Morphine Sulfate 2 mg 08/09/19 15:27 Morphine Sulfate Inj IV PUSH Q2H PRN Pain Rated 7-10 Multi-Ingred Cream/Lotion/Oil/Oint 1 applic 08/09/19 12:25 08/10/19 08:26 Minerin Creme TOPICAL 1 applic QAM JJ Administration Naloxone HCl 0.1 mg 08/08/19 20:14 Narcan IV PUSH Q2M PRN Opiate Reversal Ondansetron HCl 4 mg 08/08/19 20:14 Zofran Inj IV PUSH Q4H PRN Nausea And Vomiting Radiology Results: ITS Impressions Chest X-Ray 08/07/19 17:32 IMPRESSION: No acute cardiopulmonary findings. Abdomen/Pelvis CT 08/07/19 18:50 IMPRESSION: Acute cholecystitis and cholangitis. Upper Quadrant Ultrasound 08/08/19 07:50 IMPRESSION: Cholelithiasis, gallbladder wall thickening. Differential diagnosis includes acute and most likely chronic cholecystitis. Consider radionuclide hepatobiliary scan for further evaluation of possible acute cholecystitis as clinically appropriate Common bile duct measures 7.4 mm, greater than expected. Choledocholithiasis or other cause for bile duct obstruction should be considered. Consider MRCP. Cholangiogram,Operative 08/08/19 19:40 IMPRESSION: 1. Persistent 2-3 mm likely gallstone in the mid cystic duct. No evident gallstones in the common bile duct. Toe X-Ray 08/10/19 12:35 IMPRESSION: No significant bony abnormality Labs Labs: Laboratory Results - last 24 hr 08/10/19 08/10/19 05:44 05:44 WBC 9.1 RBC 4.05 L Hgb 12.0 L Hct 37.2 L MCV 91.9 MCH 29.6 MCHC 32.3 RDW 14.1 Plt Count 212 MPV 12.4 H Sodium 135 L Potassium 4.0 Chloride 100 Carbon Dioxide 32 H B
[2019-08-10 21:30] VITALS: BP 117/66; PULSE 72; RESP 18; TEMP 37.2; O2SAT 98
[2019-08-11 05:49] LABS: Hematocrit 36.3 % (42.0-52.0); Hemoglobin 11.8 g/dL (14.0-18.0); Mean Corpuscular HGB Conc 32.5 g/dl (32-36); Mean Corpuscular Hemoglobin 29.9 pg (26-34); Mean Corpuscular Volume 91.9 fl (80-100); Mean Platelet Volume 11.6 fl (7.4-10.4); Platelet Count Result 211 k/mm3 (150-375); Red Blood Count 3.95 M/mm3 (4.6-6.20); Red Cell Distribution Width 14.1 % (11.5-14.5); White Blood Count 7.1 K/mm3 (4.5-10.0)
[2019-08-11 06:00] VITALS: BP 117/54; PULSE 68; RESP 20; TEMP 36.8; O2SAT 95
[2019-08-11] MEDS: LEVOTHYROXINE SODIUM 75 MCG TABLET PO (06:03)
[2019-08-11 06:07] LABS: Alanine Aminotransferase 482 U/L (4-50); Albumin Level 3.3 g/dL (3.5-5.1); Alkaline Phosphatase 153 U/L (38-126); Aspartate Amino Transferase 242 U/L (17-59); Bilirubin,Total 1.2 mg/dL (0.2-1.3); Blood Urea Nitrogen 11 mg/dL (9-20); Calcium 8.3 mg/dL (8.4-10.2); Carbon Dioxide 31 mmol/L (22-30); Chloride 102 mmol/L (98-107); Estimated CRCL calculation 100 ml/min; Estimated Glomerular Filt Rate > 60; Glucose 101 mg/dL (75-110); Magnesium 1.9 mg/dL (1.6-2.3); Potassium 3.8 mmol/L (3.4-5.0); Sodium 138 mmol/L (137-145); Uric Acid 3.5 mg/dL (3.5-8.5)
[2019-08-11] MEDS: FAMOTIDINE 20 MG TABLET PO (08:14)
[2019-08-11] MEDS: LORATADINE 10 MG TABLET PO (08:14)
[2019-08-11] MEDS: EUCERIN CREAM 120 GM JAR 1 APPLIC TOPICAL (08:14)
--- NOTE | 2019-08-11 09:53 | PM.DS ---
DS: Admitting Diagnosis Admitting Diagnosis Admitting Diagnosis: Acute cholecystitis DS: Discharge Diagnosis Discharge Diagnosis (1) Acute gangrenous cholecystitis: Code(s): K81.0 - Acute cholecystitis Status: Acute Assessment and Plan: POD#[address] Dye; following and appreciate recommendations. Dr. Nelson also following and appreciate recommendations. Patient clinically doing well today. LFTs and bili have both improved/ relatively stable overnight. Pain reasonable, tolerating PO, passing flatus; small BM since yesterday Patient continues on IV Zosyn; will likely switch to PO antibiotics per Surgery recs Low fat diet per General Surgery P.r.n. morphine IV or [place] PO and Zofran have been ordered during stay; will defer pain regimen to Surgical service Likely d/c today F/u with General Surgery per their instructions and PCP if needed (2) Hypothyroidism: Qualifiers: Hypothyroidism type: acquired Qualified Code(s): E03.9 - Hypothyroidism, unspecified Code(s): E03.9 - Hypothyroidism, unspecified Status: Acute Assessment and Plan: Continue home PO levothyroxine (3) Psoriasis: Code(s): L40.9 - Psoriasis, unspecified Status: Chronic Assessment and Plan: It appears patient takes turmeric. During stay, discussed in length about discussing with PCP about other medications. Patient states he did not want to be immunosuppressed so deferred treatment with any immunosuppressants. He uses petroleum jelly and Aveeno cream at home for topical relief Hold turmeric as this is NF F/u with PCP for further care (4) Obstructive sleep apnea (adult) (pediatric): Code(s): G47.33 - Obstructive sleep apnea (adult) (pediatric) Status: Chronic Assessment and Plan: Patient is intolerant of CPAP and refuses to wear mask during stay after being offered (5) Type 2 diabetes mellitus without complications: Qualifiers: Diabetes mellitus joint terminal attack controller insulin use: without custodial use Qualified Code(s): E11.9 - Type 2 diabetes mellitus without complications Code(s): E11.9 - Type 2 diabetes mellitus without complications Status: Chronic Assessment and Plan: Patient states he is borderline. A1c 5.8. Serum BGL 101 this morning. Does not take medications Diabetic diet once diet advanced f/u with PCP (6) Edema of toe: Code(s): R60.0 - Localized edema Status: Acute Assessment and Plan: Patient noticed right 1st toe swelling 1-2 weeks ago after having a prick . No trauma to area. No history of gout. Exam revealed edematous right 1st toe, but no signs of acute infection; gout unlikely. Uric acid 3.5. Right 1st toe xray unremarkable. Unclear etiology. B/L LE are edematous which is chronic F/u with PCP DS: Summary Hospital Course Reason for hospitalization: Acute gangrenous cholecystitis Hospital Course: Patient is a 69 yo M with history of hypothyroidism, TELMA, Psoriasis, and DMII among other comorbid conditions who presented to the ER on 08/06 with chest pain and epigastric pain. While in the ER, patient was found to likely have acute cholecystitis with cholangitis on CT of abd/pelvis. Patient admitted under this setting. Please see H&P for further details. Presenting VS: Temp Pulse Resp BP Pulse Ox 98.7 F 73 15 152/77 H 97 08/07/19 16:20 08/07/19 16:20 08/07/19 16:20 08/07/19 16:20 08/07/19 16:20 Presenting Pertinent labs: Tot bili 3.9, direct bili 1.6, AST 303, ALT 444, alk phos 246, serial trops negative, lipase 601. CBC, coags, chemistry otherwise unremarkable Micro: none Imaging: Chest X-Ray 08/07/19 17:32 IMPRESSION: No acute cardiopulmonary findings. A
--- NOTE | 2019-08-11 10:27 | PM.PNGS ---
Progress Note: A&P Assessment and Plan (1) Acute gangrenous cholecystitis: Code(s): K81.0 - Acute cholecystitis Status: Acute Assessment and Plan: OK to discharge today. discussed d/c instructions with patient. Follow up with Dr. Dye in 2 weeks. Subjective Subjective Date/Time Seen: 08/11/19 10:27 Improving more today. Pain controlled. Tolerating diet. Exam GI: Inspection: other (GRISELDA serosanguineous) GI Palp: Yes Soft to palpation, Yes Tenderness to palpation present (GI) (Incisional) and Yes Other GI palpation findings present (Incisions clean, dry, intact) Objective Data Vital Signs Vital Signs: Vital Signs - 24 hr 08/10/19 14:00 08/10/19 21:30 08/11/19 06:00 Temperature 36.7 C 37.2 C 36.8 C Pulse Rate 83 72 68 Respiratory Rate 18 18 20 Blood Pressure 125/58 L 117/66 117/54 L Pulse Oximetry 96 98 95 Intake/Output Intake/Output: Intake & Output 08/08/19 08/09/19 08/10/19 08/11/19 23:59 23:59 23:59 23:59 Intake Total 2400 2230 2440 490 Output Total 10 1500 1315 2020 Balance 2390 730 1125 -1530 Meds/Results Medications: Active Medications Generic Name Dose Route Start Last Admin Trade Name Freq PRN Reason Stop Dose Admin Acetaminophen 500 mg 08/08/19 20:14 Tylenol Tablet PO Q6H PRN Mild Pain (1-3) or Fever Hydrocodone Bitart/Acetaminophen 1 tab 08/08/19 20:14 08/10/19 21:18 [place] 5-325 Mg PO 1 tab Q4H PRN Administration Pain Rated 4-6 Hydrocodone Bitart/Acetaminophen 1 tab 08/08/19 20:14 [place] 10-325 Mg PO Q4H PRN Pain Rated 7-10 Enoxaparin Sodium 40 mg 08/09/19 09:00 08/10/19 08:27 Lovenox SUB-Q 40 mg DAILY JJ Administration Famotidine 20 mg 08/09/19 21:00 08/11/19 08:14 Pepcid PO 20 mg Q12HR JJ Administration Piperacillin/Tazobactam/Dextrose 3.375 gm in 50 mls @ 100 mls/hr 08/08/19 01:00 08/11/19 06:03 Zosyn 3.375 Gm/D5w 50ml Pm IVPB 100 mls/hr Q6H JJ Administration Levothyroxine Sodium 75 mcg 08/09/19 07:30 08/11/19 06:03 Synthroid PO 75 mcg DAILY@0630 JJ Administration Loratadine 10 mg 08/09/19 09:00 08/11/19 08:14 Claritin PO 10 mg QAM JJ Administration Morphine Sulfate 1 mg 08/09/19 15:27 Morphine Sulfate Inj IV PUSH Q2H PRN Pain Rated 4-6 Morphine Sulfate 2 mg 08/09/19 15:27 Morphine Sulfate Inj IV PUSH Q2H PRN Pain Rated 7-10 Multi-Ingred Cream/Lotion/Oil/Oint 1 applic 08/09/19 12:25 08/11/19 08:14 Minerin Creme TOPICAL 1 applic QAM JJ Administration Naloxone HCl 0.1 mg 08/08/19 20:14 Narcan IV PUSH Q2M PRN Opiate Reversal Ondansetron HCl 4 mg 08/08/19 20:14 Zofran Inj IV PUSH Q4H PRN Nausea And Vomiting Radiology Results: ITS Impressions Chest X-Ray 08/07/19 17:32 IMPRESSION: No acute cardiopulmonary findings. Abdomen/Pelvis CT 08/07/19 18:50 IMPRESSION: Acute cholecystitis and cholangitis. Upper Quadrant Ultrasound 08/08/19 07:50 IMPRESSION: Cholelithiasis, gallbladder wall thickening. Differential diagnosis includes acute and most likely chronic cholecystitis. Consider radionuclide hepatobiliary scan for further evaluation of possible acute cholecystitis as clinically appropriate Common bile duct measures 7.4 mm, greater than expected. Choledocholithiasis or other cause for bile duct obstruction should be considered. Consider MRCP. Cholangiogram,Operative 08/08/19 19:40 IMPRESSION: 1. Persistent 2-3 mm likely gallstone in the mid cystic duct. No evident gallstones in the common bile duct. Toe X-Ray 08/10/19 12:35 IMPRESSION: No significant bony abnormality Labs Labs: Laboratory Results - last 24 hr 08/11/19 08/11/19 05:30 05:30 WBC 7.1 RBC 3.95 L Hgb 11.8 L Hct 36.3 L MCV 91.9 MCH 29.9 MCHC 32.5 RDW 14.1 Plt Count 211 MPV 11.6 H Sodium 138 Potassium 3.8 Chloride 1
== END 2019-08-11 13:15 | disposition home or self-care (01) | DRG 418 ==
LOC: ANHED 19:30 → ANH3MEDSUR 19:54
PROVIDERS: Physician Assistant; Surgery; Admitting Provider Internal Medicine; Emergency Provider Emergency Medicine; PCP Family Medicine; Visit Provider Internal Medicine
PROC: 0FT44ZZ Resection of Gallbladder, Percutaneous Endoscopic Approach (ICD-10-PCS; CPT 47562; principal; 2019-08-08 15:30)
DX: K80.00 Calculus of gallbladder with acute cholecystitis without obstruction (principal); K82.1 Hydrops of gallbladder; E03.9 Hypothyroidism, unspecified; E11.9 Type 2 diabetes mellitus without complications; G47.33 Obstructive sleep apnea (adult) (pediatric); K82.A1 Gangrene of gallbladder in cholecystitis; L40.9 Psoriasis, unspecified
CPT/HCPCS: 36415; 71046; 73660; 74177; 74300; 76705; 80048; 80053; 80076; 83036; 83690; 83735; 84484; 84550; 85025; 85027; 85610; 85730; 86850; 86900; 86901; 88304; 93005; 96365; 99285; A9270; C1713; J0330; J1100; J1650; J1885; J2270; J2370; J2405; J2543; J2704; J2710; J3010; J7120; Q9967

== ENCOUNTER 2019-08-17 12:17 | Outpatient (CLI) | payer MEDICARE, OTHER, SELFPAY ==
[2019-08-17 13:11] LABS: Basophils Absolute Auto 0.1 K/mm3 (0.0-0.1); Basophils Percent Auto 0.6 % (0.2-1.2); Eosinophils Absolute Auto 0.3 K/mm3 (0-0.3); Eosinophils Percent Auto 3.1 % (0-4.4); Hematocrit 38.1 % (42.0-52.0); Hemoglobin 12.3 g/dL (14.0-18.0); Immature Granulocyte Absolute 0.05 K/mm3 (0.00-0.031); Immature Granulocyte Percent A 0.5 % (0-0.5); Lymphocytes Absolute Auto 1.53 K/mm3 (0.9-3.2); Lymphocytes Percent Auto 15.3 % (18.3-44.2); Mean Corpuscular HGB Conc 32.3 g/dl (32-36); Mean Corpuscular Hemoglobin 29.7 pg (26-34); Mean Platelet Volume 11.6 fl (7.4-10.4); Monocytes Absolute Auto 0.8 K/mm3 (0.1-0.6); Monocytes Percent Auto 8.2 % (2.6-8.5); Neutrophils Absolute Auto 7.3 K/mm3 (1.3-6.7); Neutrophils Percent Auto 72.3 % (45.5-73.1); Platelet Count Result 290 k/mm3 (150-375); Red Blood Count 4.14 M/mm3 (4.6-6.20); Red Cell Distribution Width 14.3 % (11.5-14.5)
[2019-08-17 13:13] LABS: Hemoglobin A1C 5.8 % (<5.7)
[2019-08-17 13:16] LABS: Alanine Aminotransferase 254 U/L (4-50); Alanine Aminotransferase 263 U/L (4-50); Albumin Level 3.9 g/dL (3.5-5.1); Alkaline Phosphatase 308 U/L (38-126); Alkaline Phosphatase 314 U/L (38-126); Aspartate Amino Transferase 152 U/L (17-59); Aspartate Amino Transferase 157 U/L (17-59); Bilirubin,Total 1.3 mg/dL (0.2-1.3); Blood Urea Nitrogen 13 mg/dL (9-20); Calcium 8.9 mg/dL (8.4-10.2); Carbon Dioxide 32 mmol/L (22-30); Chloride 102 mmol/L (98-107); Cholesterol 112 mg/dL (0-200); Estimated Glomerular Filt Rate > 60; Glucose 101 mg/dL (75-110); HDL Direct 33 mg/dL; Potassium 3.7 mmol/L (3.4-5.0); Sodium 138 mmol/L (137-145); Triglycerides 50 mg/dL (<150)
[2019-08-17 13:27] LABS: LDL Cholesterol Direct 54 mg/dL
[2019-08-17 13:47] LABS: Prostate Specific Antigen 2.3 ng/mL (< OR = 4.0)
[2019-08-17 14:00] LABS: Iron 105 ug/dL (49-181)
[2019-08-17 14:10] LABS: Percent Iron Saturation 34 % (20-50)
[2019-08-17 14:18] LABS: Free T4 Free Thyroxine 1.38 ng/mL (0.78-2.19)
[2019-08-17 14:57] LABS: Microalbumin Urine Random 41.8 mg/L (0-16.7)
[2019-08-21 13:52] LABS: Creatinine Urine 414.8 mg/dL; MALB Creatinine Ratio 10.1 mg/g (0-30)
== END 2019-08-17 12:18 | disposition home or self-care (01) ==
PROVIDERS: Referring Provider Physician Assistant; Visit Provider Family Medicine
DX: D64.9 Anemia, unspecified (principal); E03.9 Hypothyroidism, unspecified; E11.9 Type 2 diabetes mellitus without complications; Z12.5 Encounter for screening for malignant neoplasm of prostate; E78.49 Other hyperlipidemia; K81.0 Acute cholecystitis; L40.9 Psoriasis, unspecified
CPT/HCPCS: 36415; 80053; 80061; 80076; 82043; 83036; 83540; 83550; 84153; 84439; 84443; 85025; 86038; G0103

== ENCOUNTER 2019-08-22 11:29 | Outpatient (CLI) | payer MEDICARE, OTHER, SELFPAY ==
--- NOTE | ~2019-08-22 | US_ITS ---
EXAMINATION: US right upper quadrant DATE: 08/22/2019 11:58 INDICATION: Right upper quadrant pain, recent cholecystectomy TECHNIQUE: Multiple grayscale and Doppler ultrasound images of the abdomen were obtained. COMPARISON: 08/08/2019 FINDINGS: The head, body, and tail of the pancreas are normal. The liver is normal with normal echoge nicity and echotexture. No surface nodularity. Normal hepatopetal flow in the main portal vein. The g allbladder is surgically absent. The normal common bile duct measures 7 mm. IMPRESSION: 1. Unremarkable postcholecystectomy ultrasound. Reviewed, dictated and finalized at location A.
--- NOTE | ~2019-08-22 | NM_ITS ---
EXAMINATION: NM hepatobiliary wo pharm DATE: 08/22/2019 16:08 INDICATION: Abnormal findings of blood chemistry post cholecystectomy. COMPARISON: None. TECHNIQUE: 4.9 mCi Tc-99m mebrofenin (Choletec) was administered intravenously. Scintigraphic images of the abdomen were obtained for one hour. FINDINGS: There is normal clearance of radiotracer from the blood pool. There is homogeneous tracer u ptake by the liver. Activity progresses through the common bile duct into the small bowel with small bowel activity first evident at 15 minutes and increasing throughout the remainder of the examinatio n. No evident bile leak. IMPRESSION: 1. Normal postcholecystectomy hepatobiliary scan with normal clearance of activity into the small janell wel and no evident bile leak. Reviewed, dictated and finalized at location A. IMPRESSION: 1. Normal postcholecystectomy hepatobiliary scan with normal clearance of acti vity into the small bowel and no evident bile leak.
[2019-08-22 12:38] LABS: Basophils Absolute Auto 0.1 K/mm3 (0.0-0.1); Basophils Percent Auto 0.5 % (0.2-1.2); Eosinophils Absolute Auto 0.2 K/mm3 (0-0.3); Eosinophils Percent Auto 2.2 % (0-4.4); Hematocrit 41.3 % (42.0-52.0); Hemoglobin 13.2 g/dL (14.0-18.0); Immature Granulocyte Absolute 0.03 K/mm3 (0.00-0.031); Immature Granulocyte Percent A 0.3 % (0-0.5); Lymphocytes Absolute Auto 1.43 K/mm3 (0.9-3.2); Mean Corpuscular Hemoglobin 29.7 pg (26-34); Mean Corpuscular Volume 92.8 fl (80-100); Mean Platelet Volume 12.4 fl (7.4-10.4); Monocytes Absolute Auto 0.8 K/mm3 (0.1-0.6); Monocytes Percent Auto 8.7 % (2.6-8.5); Neutrophils Percent Auto 73.3 % (45.5-73.1); Platelet Count Result 321 k/mm3 (150-375); Red Blood Count 4.45 M/mm3 (4.6-6.20); Red Cell Distribution Width 14.7 % (11.5-14.5); White Blood Count 9.5 K/mm3 (4.5-10.0)
[2019-08-22 12:55] LABS: Alanine Aminotransferase 290 U/L (4-50); Albumin Level 4.3 g/dL (3.5-5.1); Alkaline Phosphatase 462 U/L (38-126); Aspartate Amino Transferase 246 U/L (17-59); Bilirubin,Total 2.2 mg/dL (0.2-1.3)
[2019-08-22 12:57] LABS: Alanine Aminotransferase 296 U/L (4-50); Albumin Level 4.3 g/dL (3.5-5.1); Alkaline Phosphatase 468 U/L (38-126); Aspartate Amino Transferase 250 U/L (17-59); Bilirubin,Total 2.2 mg/dL (0.2-1.3); Blood Urea Nitrogen 11 mg/dL (9-20); Carbon Dioxide 32 mmol/L (22-30); Chloride 101 mmol/L (98-107); Estimated Glomerular Filt Rate > 60; Glucose 97 mg/dL (75-110); Potassium 3.7 mmol/L (3.4-5.0); Sodium 140 mmol/L (137-145)
[2019-08-22 13:48] LABS: Hepatitis B Surface Antigen Negative (Negative)
[2019-08-22 13:53] LABS: HAV RESULT Negative (Negative); Hepatitis B Core IgM Result Negative (Negative)
[2019-08-22 14:05] LABS: Hepatitis C Virus Antibody Negative (Negative)
[2019-08-25 05:52] LABS: GGT 549 U/L (3-70)
== END 2019-08-22 11:30 | disposition home or self-care (01) ==
PROVIDERS: Family Medicine; Visit Provider Surgery
DX: R79.89 Other specified abnormal findings of blood chemistry (principal); R10.11 Right upper quadrant pain
CPT/HCPCS: 36415; 76705; 78226; 80053; 80074; 80076; 82248; 82977; 85025; A9537

== ENCOUNTER 2019-08-24 07:14 | Outpatient (CLI) | payer MEDICARE, OTHER, SELFPAY ==
[2019-08-24 07:56] LABS: Alanine Aminotransferase 204 U/L (4-50); Albumin Level 3.9 g/dL (3.5-5.1); Alkaline Phosphatase 309 U/L (38-126); Aspartate Amino Transferase 104 U/L (17-59); Bilirubin,Total 1.3 mg/dL (0.2-1.3)
== END 2019-08-24 07:15 | disposition home or self-care (01) ==
PROVIDERS: Visit Provider Surgery
DX: R79.89 Other specified abnormal findings of blood chemistry (principal)
CPT/HCPCS: 36415; 80076

== ENCOUNTER 2019-08-27 10:41 | Outpatient (CLI) | payer MEDICARE, OTHER, SELFPAY ==
[2019-08-27 11:27] LABS: Alanine Aminotransferase 115 U/L (4-50); Albumin Level 3.9 g/dL (3.5-5.1); Alkaline Phosphatase 219 U/L (38-126); Aspartate Amino Transferase 57 U/L (17-59); Bilirubin,Total 0.6 mg/dL (0.2-1.3); Uric Acid 5.3 mg/dL (3.5-8.5)
== END 2019-08-27 10:42 | disposition home or self-care (01) ==
PROVIDERS: Nurse Practitioner Family; Visit Provider Surgery
DX: K81.0 Acute cholecystitis (principal); R79.89 Other specified abnormal findings of blood chemistry; M79.674 Pain in right toe(s)
CPT/HCPCS: 36415; 80076; 84550

== ENCOUNTER 2019-09-23 08:58 | Outpatient (CLI) | payer MEDICARE, OTHER, SELFPAY ==
[2019-09-23 09:45] LABS: Alanine Aminotransferase 34 U/L (4-50); Albumin Level 3.8 g/dL (3.5-5.1); Alkaline Phosphatase 80 U/L (38-126); Aspartate Amino Transferase 41 U/L (17-59); Bilirubin,Total 0.5 mg/dL (0.2-1.3); Blood Urea Nitrogen 15 mg/dL (9-20); CRP 2.3 mg/dL (<1.0); Calcium 8.6 mg/dL (8.4-10.2); Carbon Dioxide 30 mmol/L (22-30); Chloride 102 mmol/L (98-107); Estimated Glomerular Filt Rate > 60; Glucose 102 mg/dL (75-110); Potassium 3.9 mmol/L (3.4-5.0); Sodium 139 mmol/L (137-145); Uric Acid 5.5 mg/dL (3.5-8.5)
[2019-09-23 09:46] LABS: Rheumatoid Factor < 8.6 IU/ML (<12)
[2019-09-23 11:30] LABS: Erythrocyte Sedimentation Rate 49 mm/hr (0-20)
[2019-09-26 11:57] LABS: HLA B27 Positive (Negative)
== END 2019-09-23 08:59 | disposition home or self-care (01) ==
LOC: ANHLAB 09:04
PROVIDERS: PCP Family Medicine; Visit Provider Podiatrist Foot & Ankle Surgery
DX: M13.0 Polyarthritis, unspecified (principal)
CPT/HCPCS: 36415; 80053; 84550; 85652; 86038; 86140; 86430; 86812

== ENCOUNTER 2020-11-03 11:03 | Outpatient (CLI) | payer MEDICARE, OTHER, SELFPAY ==
--- NOTE | ~2020-11-03 | XR_ITS ---
EXAMINATION: XR chest 2V EXAM DATE: 11/03/2020 12:01 INDICATION: R06.00 - Dyspnea, unspecified. TECHNIQUE: Frontal and lateral projections of the chest obtained and reviewed. Comparison is made to prior examination from 08/07/2019. FINDINGS: The lungs are clear. There are no pleural effusions. The cardiomediastinal silhouette is within normal limits. There is no pneumothorax suspected. Some hyperinflation. Patient has diffuse idiopathic skeletal hyperostosis (DISH). IMPRESSION: No acute cardiopulmonary findings. Reviewed, dictated and finalized at location B.
--- NOTE | ~2020-11-03 | XR_ITS ---
EXAMINATION: XR foot LT 2V EXAM DATE: 11/03/2020 12:01 INDICATION: M79.672 - Pain in left foot . TECHNIQUE: Frontal and lateral projections of the left foot. Correlation is made to left ankle 2013. FINDINGS: There are no acute left foot fractures or dislocations identified. No periosteal reaction o r band of sclerosis to suggest subacute stress fracture. There is no subcutaneous gas. There is sof t tissue swelling over the left lower extremity. There are no radiopaque foreign bodies. Moderate inferior, small posterior calcaneal spurs. IMPRESSION: 1. Diffuse soft tissue swelling. 2. Calcaneal spurs. Reviewed, dictated and finalized at location B.
--- NOTE | ~2020-11-03 | US_ITS ---
EXAMINATION: US venous doppler [facility] DATE: 11/03/2020 11:47 INDICATION: Bilateral lower limb edema TECHNIQUE: Torres scale images without and with compression and Doppler images of the bilateral lower e xtremity veins were obtained. COMPARISON: 05/31/2017 FINDINGS: The right common femoral vein, profunda femoral vein, femoral vein, popliteal vein, peroneal trunk, p osterior tibial veins, and greater saphenous vein are patent. The left common femoral vein, profunda femoral vein, femoral vein, popliteal vein, peroneal trunk, po sterior tibial veins, and greater saphenous vein are patent. IMPRESSION: 1. Patent bilateral lower extremity veins. No evidence of deep venous thrombosis. Reviewed, dictated and finalized at location A. IMPRESSION: 1. Patent bilateral lower extremity veins. No evidence of deep venous thrombosi s.
--- NOTE | 2020-11-03 12:17 | ECG_ITS ---
Measurements Intervals [place] Rate: 58 P: -20 KS: 225 QRS: 61 QRSD: 117 T: 29 QT: 399 QTc: 395 Interpretive Statements SINUS BRADYCARDIA WITH FIRST DEGREE AV BLOCK ABNORMAL ECG Electronically Signed On 11-03-2020 12:48:39 CDT by Nitin Peña D.O.
== END 2020-11-03 11:04 | disposition home or self-care (01) ==
PROVIDERS: PCP Family Medicine; Visit Provider Nurse Practitioner Family
DX: R60.0 Localized edema (principal); R06.00 Dyspnea, unspecified; Z87.891 Personal history of nicotine dependence; M79.672 Pain in left foot; M77.32 Calcaneal spur, left foot; M79.89 Other specified soft tissue disorders; I44.0 Atrioventricular block, first degree
CPT/HCPCS: 71046; 73620; 93005; 93970

== ENCOUNTER 2020-11-20 09:01 | Outpatient (CLI) | payer MEDICARE, OTHER, SELFPAY ==
[2020-11-20 09:34] LABS: Basophils Absolute Auto 0.1 K/mm3 (0.0-0.1); Basophils Percent Auto 0.8 % (0.2-1.2); Eosinophils Absolute Auto 0.2 K/mm3 (0-0.3); Hematocrit 39.5 % (42.0-52.0); Hemoglobin 12.4 g/dL (14.0-18.0); Immature Granulocyte Absolute 0.06 K/mm3 (0.00-0.031); Immature Granulocyte Percent A 0.6 % (0-0.5); Lymphocytes Absolute Auto 2.08 K/mm3 (0.9-3.2); Lymphocytes Percent Auto 19.8 % (18.3-44.2); Mean Corpuscular HGB Conc 31.4 g/dl (32-36); Mean Corpuscular Hemoglobin 28.8 pg (26-34); Mean Corpuscular Volume 91.9 fl (80-100); Mean Platelet Volume 10.9 fl (7.4-10.4); Monocytes Absolute Auto 0.8 K/mm3 (0.1-0.6); Monocytes Percent Auto 7.6 % (2.6-8.5); Neutrophils Absolute Auto 7.3 K/mm3 (1.3-6.7); Neutrophils Percent Auto 69.2 % (45.5-73.1); Platelet Count Result 286 k/mm3 (150-375); Red Cell Distribution Width 14.2 % (11.5-14.5); White Blood Count 10.5 K/mm3 (4.5-10.0)
[2020-11-20 09:52] LABS: Alanine Aminotransferase 20 U/L (4-50); Albumin Level 3.8 g/dL (3.5-5.1); Alkaline Phosphatase 91 U/L (38-126); Anion Gap 7 mmol/L (8-16); Aspartate Amino Transferase 28 U/L (17-59); Bilirubin,Total 0.5 mg/dL (0.2-1.3); Blood Urea Nitrogen 16 mg/dL (9-20); Calcium 8.8 mg/dL (8.4-10.2); Carbon Dioxide 31 mmol/L (22-30); Chloride 103 mmol/L (98-107); Cholesterol 135 mg/dL (0-200); Estimated Glomerular Filt Rate > 60; Glucose 121 mg/dL (65-110); HDL Direct 39 mg/dL; Potassium 3.8 mmol/L (3.4-5.0); Sodium 141 mmol/L (137-145); Triglycerides 39 mg/dL (<150)
[2020-11-20 10:02] LABS: LDL Cholesterol Direct 73 mg/dL
[2020-11-20 10:22] LABS: Prostate Specific Antigen 2.2 ng/mL (< OR = 4.0)
[2020-11-20 10:56] LABS: Free T4 Free Thyroxine 1.19 ng/mL (0.78-2.19)
== END 2020-11-20 09:02 | disposition home or self-care (01) ==
LOC: ANHLAB 09:05
PROVIDERS: PCP Family Medicine; Visit Provider Nurse Practitioner Family
DX: D64.9 Anemia, unspecified (principal); L40.9 Psoriasis, unspecified; E11.9 Type 2 diabetes mellitus without complications; R79.89 Other specified abnormal findings of blood chemistry; Z13.220 Encounter for screening for lipoid disorders; Z12.5 Encounter for screening for malignant neoplasm of prostate; E03.9 Hypothyroidism, unspecified
CPT/HCPCS: 36415; 80053; 80061; 84153; 84439; 84443; 85025; G0103

== ENCOUNTER 2020-12-10 10:00 | Outpatient (CLI) | payer MEDICARE, OTHER, SELFPAY ==
[2020-12-10 10:40] LABS: Hemoglobin A1C 5.7 % (<5.7)
== END 2020-12-10 10:01 | disposition home or self-care (01) ==
PROVIDERS: PCP Family Medicine; Visit Provider Nurse Practitioner Family
DX: E11.9 Type 2 diabetes mellitus without complications (principal); R79.89 Other specified abnormal findings of blood chemistry
CPT/HCPCS: 36415; 83036; 84436; 84443

== ENCOUNTER 2023-07-06 09:40 | Outpatient (CLI) | payer MEDICARE, OTHER, SELFPAY ==
[2023-07-06 10:50] LABS: Hematocrit 44.2 % (42.0-52.0); Hemoglobin 13.9 g/dL (14.0-18.0); Mean Corpuscular HGB Conc 31.4 g/dl (32-36); Mean Corpuscular Hemoglobin 30.8 pg (26-34); Mean Corpuscular Volume 97.8 fl (80-100); Mean Platelet Volume 12.1 fl (7.4-10.4); Platelet Count Result 199 k/mm3 (150-375); Red Blood Count 4.52 M/mm3 (4.6-6.20); Red Cell Distribution Width 13.1 % (11.5-14.5); White Blood Count 6.2 K/mm3 (4.5-10.0)
[2023-07-06 11:03] LABS: Alanine Aminotransferase 33 U/L (6-50); Albumin Level 4.6 g/dL (3.5-5.1); Alkaline Phosphatase 58 U/L (38-126); Anion Gap 5 mmol/L (4-12); Aspartate Amino Transferase 35 U/L (17-59); Bilirubin,Total 1.3 mg/dL (0.2-1.3); Blood Urea Nitrogen 26 mg/dL (9-20); Calcium 9.2 mg/dL (8.4-10.2); Carbon Dioxide 29 mmol/L (22-30); Chloride 105 mmol/L (98-107); Cholesterol 189 mg/dL (0-200); Estimated Glomerular Filt Rate > 60; Glucose 99 mg/dL (65-110); HDL Direct 55 mg/dL; Sodium 139 mmol/L (137-145); Triglycerides 57 mg/dL (<150)
[2023-07-06 11:14] LABS: Hemoglobin A1C 5.5 % (<5.7); LDL Cholesterol Direct 108 mg/dL
[2023-07-06 11:15] LABS: Iron 109 ug/dL (49-181)
[2023-07-06 11:23] LABS: Creatinine Urine 187.1 mg/dL
[2023-07-06 11:26] LABS: Percent Iron Saturation 40 % (20-50)
[2023-07-06 11:28] LABS: MALB Creatinine Ratio 8.8 mg/g (0-30); Microalbumin Urine Random 16.4 mg/L (0-16.7)
[2023-07-06 11:32] LABS: Free T4 Free Thyroxine 1.37 ng/mL (0.78-2.19); Prostate Specific Antigen 3.3 ng/mL (< OR = 4.0)
== END 2023-07-06 09:41 | disposition home or self-care (01) ==
LOC: ANHLAB 09:47
PROVIDERS: PCP Family Medicine; Visit Provider Family Medicine
DX: Z12.5 Encounter for screening for malignant neoplasm of prostate (principal); N40.1 Benign prostatic hyperplasia with lower urinary tract symptoms; E11.9 Type 2 diabetes mellitus without complications; E03.9 Hypothyroidism, unspecified; D64.9 Anemia, unspecified; Z13.220 Encounter for screening for lipoid disorders; L40.9 Psoriasis, unspecified
CPT/HCPCS: 36415; 80048; 80061; 80076; 82043; 82728; 83036; 83540; 83550; 84153; 84439; 84443; 85027; G0103

== ENCOUNTER 2024-07-09 10:44 | Outpatient (CLI) | payer MEDICARE, OTHER, SELFPAY ==
--- OUTSIDE RECORDS SUMMARY | 2024-07-09 11:36 | XMS_ITS | Clinical Summary ---
Author Organization [facility] Address [address] [place] [address] Care Team Providers Care Head Athletic Trainer Name Role Phone Armand Franz MD Primary Care Provider + [phone] Allergies No known active allergies Medications levothyroxine (SYNTHROID) 75 mcg tablet Take 75 mcg by mouth coil connector before breakfast Active adalimumab (Humira,CF, Pen) 40 mg/0.4 mL pen injector kit Inject 1 PEN (40 mg) under the skin every 14 days 2 each 11 4 Active clobetasoL (TEMOVATE) 0.05 % ointment 6 Active clobetasoL (TEMOVATE) 0.05 % external solution 6 Active finasteride (PROSCAR) 5 mg tablet 4 Active Paxlovid tablets,dose pack tablets in a dose pack TK 2 NIRMATRELVIR TS AND 1 RITONAVIR T TOGETHER PO TWICE DAILY X 5 DAYS 4 Active roflumilast (Zoryve) 0.3 % cream Apply 1 Application topically daily as needed (psoriasis rash to abdomen, L leg) 60 g 2 4 Active Active Problems Problem Noted Date Diagnosed Date BAILEY (dyspnea on exertion) 11/23/2020 Bilateral lower extremity edema 11/23/2020 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 Overview (06/10/2016): THYROTOX NOS NO CRISIS 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 Overview (06/10/2016): TOX DIF GOITER NO CRISIS Surgical History Surgery Date Site/Laterality Comments NO PAST SURGERIES Medical History Medical History Date Comments Malignant neoplasm of skin Cance r, skin Disorder of thyroid Thyroid dise ase Family History Medical History Relation Name Comments Heart valve surgery Father Heart disease Mother Thyroid disease Other Family histo ry of Thyroid disease; Relation Name Status Comments Father (Age 94) Mother (Age 87) Other Social History Tobacco Use Types Packs/Day Years Used Date Smoking Tobacco: Former Alcohol Use Standard Drinks/Week Comments Yes 0 (1 standard drink = 0.6 oz pur e alcohol) Sex and Gender Information Value Date Recorded Sex Assigned at Not on file Legal Sex Male 12:15 AM LEARNING SERVICES COORDINATOR Gender Identity Male 11/22/2020 4:21 PM CDT Sexual Orientation Not on file Obstetrics History Last Filed Vital Signs Vital Sign Reading Time Taken Comments Blood Pressure 122/66 01/11/2021 9:11 AM LEARNING SERVICES COORDINATOR Pulse 68 01/11/2021 9:11 AM LEARNING SERVICES COORDINATOR Temperature 36.5 C (97.7 F) 04/14/2020 10:22 AM LEARNING SERVICES COORDINATOR Respiratory Rate - - Oxygen Saturation 98% 01/11/2021 9:11 AM LEARNING SERVICES COORDINATOR Inhaled Oxygen Concentration - - Weight 136.5 kg (300 lb 14.4 oz) 01/11/2021 9:11 AM LEARNING SERVICES COORDINATOR Height 193 cm (6' 4 ) 01/11/2021 9:11 AM LEARNING SERVICES COORDINATOR Body Mass Index 36.63 01/11/2021 9:11 AM LEARNING SERVICES COORDINATOR Plan of Treatment Health Maintenance Due Date Last Done Comments Depression Screening 1948 Fall Risk Assessment 1948 Hepatitis B Screening 1966 Zoster Vaccine (1 of 2) 1998 Abdominal Aortic Aneurysm (AAA) Screen 2013 Well Visit 65+ 2013 Pneumococcal vaccine 65+ (2 of 2 - PPSV23) 07/11/2018 07/11/2017 Influenza Vaccine (#1) 2023 12/12/2019, 2019 DTaP/Tdap/Td Vaccine (2 - Td or Tdap) 07/12/202710/2017 Hepatitis C Screening Completed 12/17/2019 Procedures Procedure Name Priority Date/Time Associated Diagnosis Comments HEPATITIS C ANTIBODY Routine 12/17/2019 11:16 AM CDT Psoriasis Psoriatic arthritis (HCC) High risk medication use from Last 3 Months or Most Recently Relevant to Health Maintenance Results * Hepatitis C antibody (12/17/2019 11:16 AM CDT) Hep C Ab Nonreactive Nonreactive [facility] Comment:Antibodies to HCV no t detected. Does NOT exclude the possibility of recent exposure to HCV. Blood specimen (specimen) 12/17/2019 11:16 AM CDT 12/17/2019 3:59 PM CDT us Saeed Cherry MD PhD LAB MICROBIOL OGY - GENERAL ORDERABLES Edited Result - Final [facility] Department [place] [address] from Last 3 Months or Most Recently Relevant to Health Maintenance Insurance MEDICARE [facility] Address: [facility] [address] [place] [address] [facility] MEDICARE [facility] MEDICARE Care Teams Head Athletic Trainer Relationship Specialty Start Date End Date Armand Franz MD PCP - General 08/25/06
--- OUTSIDE RECORDS SUMMARY | 2024-07-09 11:36 | XMS_ITS | Referral Summary ---
Author Organization [facility] Address [address] [place] [address] Care Team Providers Care Structural Steel Engineer Name Role Phone Armand Franz MD Primary Care Provider + [phone] Allergies No known active allergies Medications levothyroxine (SYNTHROID) 75 mcg tablet Take 75 mcg by mouth onsite case manager before breakfast Active adalimumab (Humira,CF, Pen) 40 [...] Overview (06/10/2016): TOX DIF GOITER NO CRISIS Social History Tobacco Use Types Packs/Day Years Used Date Smoking Tobacco: Former Alcohol Use Standard Drinks/Week Comments Yes 0 (1 standard drink = 0.6 oz pur e alcohol) Sex and Gender Information Value Date Recorded Sex Assigned at Not on file Legal Sex Male 12:15 AM DIGITAL IMAGER Gender Identity Male 11/22/2020 4:21 PM CDT Sexual Orientation Not on file Last Filed Vital Signs Vital Sign Reading Time Taken Comments Blood Pressure 122/66 01/11/2021 9:11 AM DIGITAL IMAGER Pulse 68 01/11/2021 9:11 AM DIGITAL IMAGER Temperature 36.5 C (97.7 F) 04/14/2020 10:22 AM DIGITAL IMAGER Respiratory Rate - - Oxygen Saturation 98% 01/11/2021 9:11 AM DIGITAL IMAGER Inhaled Oxygen Concentration - - Weight 136.5 kg (300 lb 14.4 oz) 01/11/2021 9:11 AM DIGITAL IMAGER Height 193 cm (6' 4 ) 01/11/2021 9:11 AM DIGITAL IMAGER Body Mass Index 36.63 01/11/2021 9:11 AM DIGITAL IMAGER Plan of Treatment Not on file Procedures Procedure Name Priority Date/Time Associated Diagnosis Comments HEPATITIS C ANTIBODY Routine 12/17/2019 11:16 AM CDT Psoriasis Psoriatic arthritis (HCC) High risk medication use from Last 3 Months or Most Recently Relevant to Health Maintenance Results * Hepatitis C antibody (12/17/2019 11:16 AM CDT) Hep C Ab Nonreactive Nonreactive [facility] Comment:Antibodies to HCV no t detected. Does NOT exclude the possibility of recent exposure to HCV. Blood specimen (specimen) 12/17/2019 11:16 AM CDT 12/17/2019 3:59 PM CDT us Saeed Cherry MD PhD LAB MICROBIOL OGY - GENERAL ORDERABLES Edited Result - Final [facility] Department [place] [address] from Last 3 Months or Most Recently Relevant to Health Maintenance Insurance MEDICARE [facility] MEDICARE [facility] [place] [address] MEDICARE Care Teams Structural Steel Engineer Relationship Specialty Start Date End Date Aramnd Franz MD PCP - General 08/25/06
[2024-07-09 11:38] LABS: Hematocrit 44.6 % (42.0-52.0); Hemoglobin 14.1 g/dL (14.0-18.0); Mean Corpuscular HGB Conc 31.6 g/dl (32-36); Mean Corpuscular Hemoglobin 30.9 pg (26-34); Mean Corpuscular Volume 97.8 fl (80-100); Mean Platelet Volume 11.6 fl (7.4-10.4); Platelet Count Result 236 k/mm3 (150-375); Red Blood Count 4.56 M/mm3 (4.6-6.20); Red Cell Distribution Width 13.2 % (11.5-14.5); White Blood Count 5.8 K/mm3 (4.5-10.0)
[2024-07-09 11:46] LABS: Hemoglobin A1C 5.4 % (<5.7)
[2024-07-09 11:51] LABS: Alanine Aminotransferase 28 U/L (6-50); Albumin Level 4.3 g/dL (3.5-5.1); Alkaline Phosphatase 61 U/L (38-126); Anion Gap 7 mmol/L (4-12); Aspartate Amino Transferase 32 U/L (17-59); Bilirubin,Total 0.9 mg/dL (0.2-1.3); Blood Urea Nitrogen 18 mg/dL (9-20); Calcium 8.7 mg/dL (8.4-10.2); Carbon Dioxide 32 mmol/L (22-30); Chloride 100 mmol/L (98-107); Cholesterol 180 mg/dL (0-200); Estimated Glomerular Filt Rate > 60; Glucose 102 mg/dL (65-110); HDL Direct 60 mg/dL; Potassium 4.4 mmol/L (3.4-5.0); Sodium 139 mmol/L (137-145); Triglycerides 56 mg/dL (<150)
[2024-07-09 12:02] LABS: Creatinine Urine 50.8 mg/dL
[2024-07-09 12:02] LABS: LDL Cholesterol Direct 82 mg/dL
[2024-07-09 12:08] LABS: Microalbumin Urine Random < 6.0 mg/L (0-16.7)
[2024-07-09 12:09] LABS: MALB Creatinine Ratio < 11.8 mg/g (0-30)
[2024-07-09 12:17] LABS: Free T4 Free Thyroxine 1.35 ng/dL (0.78-2.19); Vitamin D 25 Hydroxy 38.4 ng/mL
[2024-07-09 12:23] LABS: Prostate Specific Antigen 1.1 ng/mL (< OR = 4.0)
== END 2024-07-09 10:45 | disposition home or self-care (01) ==
LOC: ANHLAB 10:45
PROVIDERS: PCP Family Medicine; Visit Provider Nurse Practitioner Family
DX: E11.9 Type 2 diabetes mellitus without complications (principal); Z12.5 Encounter for screening for malignant neoplasm of prostate; E55.9 Vitamin D deficiency, unspecified; E03.9 Hypothyroidism, unspecified; D64.9 Anemia, unspecified
CPT/HCPCS: 36415; 80053; 80061; 82043; 82306; 83036; 84153; 84439; 84443; 85027; G0103